=== PATIENT | female | born 1985 | race Caucasian/White ===

== ENCOUNTER 2023-04-30 09:48 | Outpatient (OUT) | payer OTHER, SELFPAY ==
[2023-04-30 10:24] VITALS: BP 130/87; PULSE 93
== END 2023-04-30 11:04 | disposition home or self-care (01) ==
LOC: FBCO 09:51 → FBC 09:55
PROVIDERS: Visit Provider Midwife
DX: O09.529 Supervision of elderly multigravida, unspecified trimester (principal); Z3A.00 Weeks of gestation of pregnancy not specified
CPT/HCPCS: 59025

== ENCOUNTER 2023-05-07 10:45 | Outpatient (OUT) | payer OTHER, SELFPAY | END 2023-05-07 11:08 | disposition home or self-care (01) | LOC: FBCO 10:46 → FBC 10:48 → FBCO 10:55 → FBC 10:56 | PROVIDERS: Visit Provider Midwife | DX: O09.529 Supervision of elderly multigravida, unspecified trimester (principal) | CPT/HCPCS: 59025 ==

== ENCOUNTER 2023-05-29 05:38 | Inpatient (IN) | payer OTHER, SELFPAY ==
[2023-05-29] VITALS (16 sets, daily range): BP systolic 133–153; BP diastolic 75–86; PULSE 71–103; RESP 16–18; TEMP 36.5–36.8; O2SAT 94–99
[2023-05-29] MEDS: LACTATED RINGER'S SOLUTION 1,000 ML 1000 ML IV ×2 (06:15→16:43)
[2023-05-29 07:00] LABS: Bilirubin Urine NEGATIVE (NEGATIVE); Blood Urine NEGATIVE (NEGATIVE); Clarity Urine CLEAR (CLEAR); Color Urine YELLOW (YELLOW); Glucose Urine UA NEGATIVE (NEGATIVE); Ketones Urine NEGATIVE (NEGATIVE); Leukocyte Esterase Urine NEGATIVE (NEGATIVE); Nitrite Urine NEGATIVE (NEGATIVE); Protein Urine TRACE mg/dL (NEG/TRACE); Specific Gravity Urine 1.025 (1.005-1.025); Urobilinogen Urine 0.2 EU/dL (0.2-1.0); pH Urine 6.5 (5.0-9.0)
[2023-05-29 07:02] LABS: Basophils Percent Auto 0.3 % (0.2-2.0); Eosinophils Absolute Auto 0.2 10^3/uL (0.0-0.7); Eosinophils Percent Auto 1.6 % (0.9-7.0); Hematocrit 34.7 % (36.0-48.0); Hemoglobin 11.7 g/dL (12.0-16.0); Immature Granulocytes Abs Auto 0.07 10^3/uL (0.00-0.03); Immature Granulocytes Pct Auto 0.7 % (0.0-0.5); Lymphocytes Absolute Auto 1.6 10^3/uL (1.2-3.8); Lymphocytes Percent Auto 16.7 % (20.5-60.0); Mean Corpuscular HGB Conc 33.7 g/dL (29.9-35.2); Mean Corpuscular Hemoglobin 29.6 pg (26.7-34.0); Mean Corpuscular Volume 87.8 fL (81.0-99.0); Monocytes Absolute Auto 0.7 10^3/uL (0.3-0.8); Monocytes Percent Auto 7.2 % (1.7-12.0); Neutrophils Absolute Auto 7.2 10^3/uL (1.4-6.5); Neutrophils Percent Auto 73.5 % (43.0-75.0); Platelet Count 161 10^3/uL (150-450); Red Blood Count 3.95 10^6/uL (4.20-5.40); Red Cell Distribution Width 13.6 % (11.0-15.0); White Blood Count 9.8 10^3/uL (4.0-11.0)
[2023-05-29 07:06] LABS: Bacteria Urine TRACE #/HPF (NONE SEEN); RBC Urine NONE SEEN #/HPF (0-2); WBC Urine NONE SEEN #/HPF (NONE SEEN)
--- NOTE | 2023-05-29 07:06 | P.OBHP_ITS ---
OB - H&P: HPI History of Present Illness Chief complaint: : 3 Para: 2 Gestational age based on last menstrual period: 39 w History of Present Dating criteria: LMP confirmed by 1st trimester US care: none Ultrasounds: normal 1st trimester US and normal mid trimester US complications: other complications comment: no complications, patient is AMA, history of depression, history of anxiety Medical complications OB: none Labs Blood type: A (+) positive Rubella: immune RPR/VDLR: nonreactive GBS status: negative HBsAG: negative Review of Systems ROS Status of ROS 10 or more systems reviewed and unremarkable except as noted in history and below [facility] Medical History Surgical History Meds Home Medications and Allergies Home Medications Medication Instructions Recorded Confirmed Type aspirin 81 mg tablet,delayed 81 mg PO DAILY 04/30/23 05/29/23 History release (Adult Low Dose Aspirin) famotidine 20 mg tablet (Acid 20 mg PO DAILY 04/30/23 05/29/23 History Ux Manager (famotidine)) prenat.vits,larisa,jpp-kynu-zourc 1 tab PO DAILY 04/30/23 05/29/23 History ondansetron 8 mg disintegrating 8 mg PO Q8H PRN nausea and vomiting 05/29/23 05/29/23 History tablet Allergies Allergy/AdvReac Type Severity Reaction Status Date / Time promethazine [From Phenergan] Allergy Intermediate Swelling Verified 05/29/23 06:05 of Lip/Tongue/Throat Exam Constitutional Documenting provider has reviewed patient's vital signs: yes Common normals: no apparent distress General appearance: cooperative and comfortable Orientation/consciousness: Yes awake HENMT Common normals: normocephalic Face and sinus: normal facial exam Chest Common normals: inspection of chest normal Respiratory Common normals: normal respiratory effort Effort & inspection: able to speak in complete sentences Auscultation: clear to auscultation bilaterally Cardio Common normals: no JVD, regular rate and regular rhythm Rate: regular rate Rhythm: regular rhythm GI Common normals: Normal to inspection, nondistended, normoactive bowel sounds present Inspection: normal to inspection Auscultation: normoactive bowel sounds Palpation: soft and firm Common normals: no CVA tenderness OB/external & speculum: deferred Back & Pelvis Common normals: no CVA tenderness Extremity Common normals: normal to inspection Neuro Common normals: oriented x3 Sensorium/orientation: awake, alert, oriented to person, oriented to place and oriented to time Speech: speech normal Psych Common normals: mental status grossly normal Results Labs Labs: Short CBC 05/29/23 Range/Units 06:15 WBC 9.8 (4.0-11.0) 10^3/uL Hgb 11.7 L (12.0-16.0) g/dL Hct 34.7 L (36.0-48.0) % Plt Count 161 (150-450) 10^3/uL Urine 05/29/23 Range/Units 06:15 Urine Color Yellow (YELLOW) Urine Clarity Clear (CLEAR) Urine pH 6.5 (5.0-9.0) Ur Specific [place] 1.025 (1.005-1.025) Urine Protein Trace (NEG/TRACE) mg/dL Urine Glucose (UA) Negative (NEGATIVE) mg/dL
[2023-05-29 07:07] LABS: Calcium Oxalate Crystals Urine FEW; Cast Seen? NONE SEEN #/LPF (NONE SEEN); Crystals Seen? Seen #/HPF (None Seen); Mucus Urine TRACE (NONE SEEN); Squamous Epithelial Cell Urine FEW #/LPF (NONE/RARE); Urine Culture Indicated NO
[2023-05-29 07:10] LABS: Amphetamine Screen Urine NEGATIVE (NEGATIVE); Barbiturates Screen Urine NEGATIVE (NEGATIVE); Benzodiazepines Screen Urine NEGATIVE (NEGATIVE); Buprenorphine Screen Urine NEGATIVE (NEGATIVE); Cannabinoid Screen Urine NEGATIVE (NEGATIVE); Cocaine Screen Urine NEGATIVE (NEGATIVE); Methadone Screen Urine NEGATIVE (NEGATIVE); Methamphetamines Screen Urine NEGATIVE (NEGATIVE); Opiate Screen Urine NEGATIVE (NEGATIVE); Oxycodone Screen Urine NEGATIVE (NEGATIVE); Phencyclidine Screen Urine NEGATIVE (NEGATIVE); Tricyclic Antidepressant Urine NEGATIVE (NEGATIVE)
[2023-05-29] MEDS: FAMOTIDINE/PF 20 MG/2 ML VIAL IV (07:26)
[2023-05-29] MEDS: CITRIC ACID/SODIUM CITRATE 30 ML SOLUTION PO (07:26)
[2023-05-29] MEDS: CEFAZOLIN SODIUM/DEXTROSE 2 GM/50 ML PIGGYBACK IV (07:31)
--- NOTE | 2023-05-29 08:45 | P.ON_ITS ---
Brief Operative Note Date of procedure: 05/29/23 Pre-op diagnosis: iup at 39wks, previous c/s, desires sterilization Post-op diagnosis: same Procedure: Patient was taken back to the Operating Room where she was given a spinal anesthesia with Duramorph without difficulty. She was prepped and draped in the normal sterile fashion. A Pfannenstiel skin incision was then made 2?cm above the symphysis pubis and carried down to underlying rectus fascia using a Bovie. The fascia was incised in the midline and extended laterally using George scissors. Two Emy clamps were placed on the superior aspect of the fascia and dissected off the underlying rectus muscles. The same was performed on the inferior aspect as well. The muscles were then in the midline. Peritoneum was identified and entered bluntly. The peritoneum was then extended superiorly and inferiorly with good visualization of the bladder. The bladder blade was inserted. Vesicouterine peritoneum was identified, tented up, and entered with Metzenbaum scissors. A bladder flap was then created digitally. The bladder blade was reinserted. A low transverse incision was made on the patient's uterus and extended laterally digitally. The was then delivered atraumatically after the bladder blade was removed in the cephalic position. The cord was clamped and cut. Cord blood was obtained. The was handed off to awaiting team. The patient's placenta was spontaneously delivered. The uterus was then exteriorized. The uterus was cleared of all clots and debris. The bladder blade was reinserted. The patient's uterine incision was closed using #0 Vicryl in a running lock fashion. Excellent hemostasis was assured.? The rt tube was identified and grasped with babock, the ligasure was used to transect and ligate the tube in its entirity, this was done on the contralateral side as well. The uterus was then returned to the patient's abdomen. The patient's abdomen was copiously irrigated using warm saline. Peritoneal gutters were cleared of all clots and debris. Again excellent hemostasis was assured. The patient's fascia was closed using #0 Vicryl in a running fashion. The patient's skin was closed using 4-0 Vicryl subcuticularly. The patient tolerated the procedure well. Sponge, lap, and needle counts were correct x2. The patient was taken to the Recovery Room in stable condition. Anesthesia: spinal Surgeon: Margarito Case Magazine Designer: EL HERNANDEZ Estimated blood loss (mL): 600 Pathology: other Condition: stable Disposition: floor
--- NOTE | 2023-05-29 08:45 | PM.OBPRCCS ---
Procedure Press Tender: EL HERNANDEZ Estimated blood loss (mL): 600 Disposition: floor Anesthesia type: Spinal
--- NOTE | 2023-05-29 09:17 | PM.OBPRCCS ---
Procedure Pre-op/Post-op diagnoses: patient presents to unit for scheduled repeat section with bilateral salpingectomy with Dr Case and myself first assisting Procedure: Repeat low transverse section with bilateral salpingectomy E Learning Specialist: EL HERNANDEZ Disposition: floor Anesthesia type: Spinal Complications: none Narrative: I first assisted dr Case as directed. I independently closed the skin incision with 3-0 vicryl on a Gary needle without difficulty. Hemostasis noted at end of procedure. Patient tolerated procedure well.
[2023-05-29] MEDS: KETOROLAC TROMETHAMINE 30 MG/ML VIAL IVP (10:14)
[2023-05-29] MEDS: NALBUPHINE HCL 10 MG/ML AMPULE 5 MG IV (10:14)
[2023-05-29] MEDS: ONDANSETRON PF 4 MG/2 ML VIAL IV ×2 (14:57→20:21)
[2023-05-29] MEDS: CEFAZOLIN SODIUM/DEXTROSE,ISO 2 GM/50 ML PIGGYBACK IV (15:04)
--- NOTE | 2023-05-29 19:11 | W.PC.ACHO ---
Registration Status: ADM IN Primary Language: Italian Preferred Language: Active Medications Generic Name Dose Route Start Last Admin Trade Name Efrainq PRN Reason Stop Dose Admin Famotidine 20 mg 05/29/23 08:00 05/29/23 07:26 Famotidine/Pf 20 Mg/2 Ml Vial IV 05/29/23 08:01 20 mg ONCE ONE Administration Diet Category Date Time Status NPO Diet Diet 05/29/23 05:44 Active Consults Category Date Time Status Consult to Anesthesiology Routine Cons 05/29/23 Ordered IV Insertion/Site Date of IV Line Insertion [18g 05/29/23 right Hand] IV Insertion Time [18g right 06:15 Hand] Neurology [place] coma scale total score 15 Respiratory Lung sounds [Throughout] clear Pulse Oximetry 98 Oxygen Delivery Method Room Air Catheter Urinary Catheter Date of 05/29/23 Insertion [Urethral] Urinary Catheter Time of 06:35 Insertion [Urethral]
--- NOTE | 2023-05-29 19:12 | W.PC.ACHO ---
Registration Status: ADM IN Primary Language: Yi Preferred Language: Active Medications Generic Name Dose Route Start Last Admin Trade Name Freq PRN Reason Stop Dose Admin Al Hydroxide/Mg Hydroxide 2,400 mg 05/29/23 08:42 Magnesium Hydroxide 2,400 Mg/10 Ml Oral.Susp PO Q6H PRN Dyspepsia Diphenhydramine HCl 25 mg 05/29/23 08:42 Diphenhydramine Hcl 50 Mg/Ml (1ml) Vial IV 05/30/23 08:43 Q6H PRN Itching Docusate Sodium 100 mg 05/30/23 09:00 Docusate Sodium 100 Mg Capsule PO BID MARSHALL Enoxaparin Sodium 40 mg 05/29/23 20:00 Enoxaparin Sodium 40 Mg/0.4 Ml Syringe SUBQ Q24H MARSHALL Sodium Chloride 1,000 mls @ 125 mls/hr 05/29/23 08:45 Sodium Chloride 0.9% 1,000 Ml IV .Q8H MARSHALL Ibuprofen 800 mg 05/29/23 08:42 Ibuprofen 400 Mg Tablet PO Q8H PRN Pain 1-3 Ketorolac Tromethamine 30 mg 05/29/23 08:42 05/29/23 10:14 Ketorolac Tromethamine 30 Mg/Ml Vial IVP 05/31/23 08:43 30 mg Q6H PRN Administration Pain 1-5 Ondansetron HCl 4 mg 05/29/23 08:42 05/29/23 14:57 Ondansetron Pf 4 Mg/2 Ml Vial IV 4 mg Q6H PRN Administration Nausea And Vomiting Oxycodone/Acetaminophen 1 each 05/29/23 08:42 Oxycodone Hcl/Acetaminophen 5-325 Mg Tablet PO Q4H PRN Pain 4-6 Oxycodone/Acetaminophen 2 each 05/29/23 08:42 05/29/23 17:25 Oxycodone Hcl/Acetaminophen 5-325 Mg Tablet PO 2 each Q4H PRN Administration Pain 7-10 Senna 17.2 mg 05/29/23 20:00 Sennosides 8.6 Mg Tablet PO QHS PRN Constipation Simethicone 80 mg 05/29/23 08:42 Simethicone 80 Mg Tab.Chew PO QID PRN Abdominal Distention Diet Category Date Time Status Regular Consistency Diet Diet 05/29/23 Dinner Active Consults Category Date Time Status Consult to Anesthesiology Routine Cons 05/29/23 Ordered IV Insertion/Site Date of IV Line Insertion [18g 05/29/23 right Hand] IV Insertion Time [18g right 06:15 Hand] Neurology [place] coma scale total score 15 [place] coma scale total score 15 Respiratory Lung sounds [Throughout] clear Lung sounds [Throughout] clear Lung sounds [Throughout] clear Lung sounds [Throughout] clear Lung sounds [Throughout] clear Pulse Oximetry 97 Pulse Oximetry 97 Pulse Oximetry 98 Pulse Oximetry 98 Pulse Oximetry 94 Pulse Oximetry 98 Oxygen Delivery Method Room Air Oxygen Delivery Method Room Air Oxygen Delivery Method Room Air Oxygen Delivery Method Room Air Oxygen Delivery Method Room Air Oxygen Delivery Method Room Air Oxygen Delivery Method Room Air Oxygen Delivery Method Room Air Oxygen Delivery Method Room Air Oxygen Delivery Method Room Air Oxygen Delivery Method Room Air Catheter Urinary Catheter Date of 05/29/23 Insertion [Urethral] Urinary Catheter Time of 06:35 Insertion [Urethral]
[2023-05-29] MEDS: ENOXAPARIN SODIUM 40 MG/0.4 ML SYRINGE SUBQ (19:49)
--- NOTE | 2023-05-29 20:55 | PC.NURSE ---
No pain reported at this time.
[2023-05-30] MEDS: KETOROLAC TROMETHAMINE 30 MG/ML VIAL IVP ×4 (01:59→20:12)
[2023-05-30 04:45] VITALS: BP 128/82; PULSE 89; RESP 16; TEMP 36.7
--- NOTE | 2023-05-30 07:14 | W.PC.ACHO ---
Registration Status: ADM IN Primary Language: Mongolian Preferred Language: Report given at this time to Roselia WONG. Active Medications Generic Name Dose Route Start Last Admin Trade Name Freq PRN Reason Stop Dose Admin Al Hydroxide/Mg Hydroxide 2,400 mg 05/29/23 08:42 Magnesium Hydroxide 2,400 Mg/10 Ml Oral.Susp PO Q6H PRN Dyspepsia Diphenhydramine HCl 25 mg 05/29/23 08:42 Diphenhydramine Hcl 50 Mg/Ml (1ml) Vial IV 05/30/23 08:43 Q6H PRN Itching Docusate Sodium 100 mg 05/30/23 09:00 Docusate Sodium 100 Mg Capsule PO BID MARSHALL Enoxaparin Sodium 40 mg 05/29/23 20:00 05/29/23 19:49 Enoxaparin Sodium 40 Mg/0.4 Ml Syringe SUBQ 40 mg Q24H MARSHALL Administration Sodium Chloride 1,000 mls @ 125 mls/hr 05/29/23 08:45 Sodium Chloride 0.9% 1,000 Ml IV .Q8H MARSHALL Ibuprofen 800 mg 05/29/23 08:42 Ibuprofen 400 Mg Tablet PO Q8H PRN Pain 1-3 Ketorolac Tromethamine 30 mg 05/29/23 08:42 05/30/23 01:59 Ketorolac Tromethamine 30 Mg/Ml Vial IVP 05/31/23 08:43 30 mg Q6H PRN Administration Pain 1-5 Ondansetron HCl 4 mg 05/29/23 08:42 05/29/23 20:21 Ondansetron Pf 4 Mg/2 Ml Vial IV 4 mg Q6H PRN Administration Nausea And Vomiting Oxycodone/Acetaminophen 1 each 05/29/23 08:42 05/30/23 04:47 Oxycodone Hcl/Acetaminophen 5-325 Mg Tablet PO 1 each Q4H PRN Administration Pain 4-6 Oxycodone/Acetaminophen 2 each 05/29/23 08:42 05/29/23 17:25 Oxycodone Hcl/Acetaminophen 5-325 Mg Tablet PO 2 each Q4H PRN Administration Pain 7-10 Senna 17.2 mg 05/29/23 20:00 Sennosides 8.6 Mg Tablet PO QHS PRN Constipation Simethicone 80 mg 05/29/23 08:42 Simethicone 80 Mg Tab.Chew PO QID PRN Abdominal Distention Diet Category Date Time Status Regular Consistency Diet Diet 05/29/23 Dinner Active Neurology [place] coma scale total score 15 Respiratory Lung sounds [Throughout] clear Lung sounds [Throughout] clear Lung sounds [Throughout] clear Lung sounds [Throughout] clear Lung sounds [Throughout] clear Lung sounds [Throughout] clear Lung sounds [Throughout] clear Pulse Oximetry 99 Pulse Oximetry 97 Pulse Oximetry 97 Pulse Oximetry 98 Pulse Oximetry 98 Pulse Oximetry 94 Oxygen Delivery Method Room Air Oxygen Delivery Method Room Air Oxygen Delivery Method Room Air Oxygen Delivery Method Room Air Oxygen Delivery Method Room Air Oxygen Delivery Method Room Air Oxygen Delivery Method Room Air Oxygen Delivery Method Room Air Oxygen Delivery Method Room Air Oxygen Delivery Method Room Air Oxygen Delivery Method Room Air Oxygen Delivery Method Room Air Catheter Date Urinary Catheter Removed 05/30/23 [Urethral] Time Urinary Catheter 04:45 Discontinued [Urethral]
--- NOTE | 2023-05-30 07:38 | PM.OBPN ---
OB - PN: Subj Subjective Patient comments: no complaints [place] status: doing well [place] feeding status: breast and bottle feeding Narrative: patient states she got no sleep as the baby was fussy throughout the night. She decided to give her some formula and see if it would help her sleep better. I did encourage her to let the nurses keep the baby in the nursery for her if she would like so they can get some sleep. PVU Exam Constitutional Vital Signs - 24 hr 05/29/23 16:26 05/29/23 08:57 05/29/23 09:12 Temperature 98.3 F 97.9 F Pulse Rate 80 Pulse Rate [Monitor] Respiratory Rate 16 16 Blood Pressure 135/82 H Blood Pressure [Left Arm] Pulse Oximetry Oxygen Delivery Method Room Air Room Air 05/29/23 09:27 05/29/23 08:57 05/29/23 09:07 Temperature 97.9 F Pulse Rate 98 H 91 H Pulse Rate [Monitor] Respiratory Rate 16 16 16 Blood Pressure Blood Pressure [Left Arm] 136/75 H 149/83 H Pulse Oximetry 94 L 98 Oxygen Delivery Method Room Air Room Air Room Air 05/29/23 09:12 05/29/23 09:22 05/29/23 09:27 Temperature 97.8 F Pulse Rate 82 82 78 Pulse Rate [Monitor] Respiratory Rate 16 16 18 Blood Pressure Blood Pressure [Left Arm] 150/82 H 153/82 H 145/80 H Pulse Oximetry 98 97 97 Oxygen Delivery Method Room Air Room Air Room Air 05/29/23 10:30 05/29/23 10:00 05/29/23 10:15 Temperature Pulse Rate 83 82 Pulse Rate [Monitor] 74 Respiratory Rate 16 16 16 Blood Pressure Blood Pressure [Left Arm] 133/84 H 143/81 H Pulse Oximetry Oxygen Delivery Method Room Air 05/29/23 10:30 05/29/23 10:45 05/29/23 11:00 Temperature Pulse Rate 74 71 74 Pulse Rate [Monitor] Respiratory Rate 18 16 16 Blood Pressure Blood Pressure [Left Arm] 142/85 H 133/86 H 138/82 H Pulse Oximetry Oxygen Delivery Method 05/29/23 11:15 05/29/23 16:30 05/29/23 19:45 Temperature 97.7 F 97.9 F Pulse Rate 72 80 89 Pulse Rate [Monitor] Respiratory Rate 16 16 16 Blood Pressure Blood Pressure [Left Arm] 145/82 H 135/82 H 137/85 H Pulse Oximetry 99 Oxygen Delivery Method Room Air Room Air 05/29/23 23:30 05/29/23 23:30 05/30/23 04:45 Temperature 97.7 F Pulse Rate 103 H Pulse Rate [Monitor] Respiratory Rate 16 Blood Pressure Blood Pressure [Left Arm] 140/83 H Pulse Oximetry Oxygen Delivery Method Room Air 05/30/23 04:45 Temperature 98.0 F Pulse Rate 89 Pulse Rate [Monitor] Respiratory Rate 16 Blood Pressure Blood Pressure [Left Arm] 128/82 H Pulse Oximetry Oxygen Delivery Method Documenting provider has reviewed patient's vital signs: yes Common normals: no apparent distress General appearance: cooperative Orientation/consciousness: Yes awake, Yes oriented to person, Yes oriented to place and Yes oriented to time HENMT Common normals: normocephalic Eye Common normals: PERRL Pupil: PERRL Neck & C-Spine Common normals: full ROM Chest Common normals: inspection of chest normal Respiratory Common normals: normal respiratory effort Auscultation: clear to auscultation bilaterally Cardio Common normals: no JVD, regular rate and regular rhythm Rate: regular rate Rhythm: regular rhythm GI Common normals: Normal to inspection, nondistended, normoactive bowel sounds present Auscultation: normoactive bowel sounds Palpation: soft (FF U/-1) Rectal Exam - Female: deferred Common normals: no CVA tenderness Back & Pelvis Common normals: no CVA tenderness Thoracic spine/upper back: normal to inspection Extremity Common normals: normal to inspection Neuro Common normals: oriented x3 Sensorium/orientation: awake, alert, oriented to person, oriented to place and oriented to time Psych Common normals: mental status grossly normal, thought process normal, cooperative, affect normal and speech normal Results Labs Labs: Short CBC 05/29/23 Range/Units 05:50 WBC 10.5 (4.0-11.0) 10^3/uL Hgb 9.9 L (12.0-16.0) g/dL Hct 29.5 L (36.0-48.0) % Plt Count 131 L (150-450) 10^3/uL OB - PN: A/P Assessment and Plan (1) Delivery by section: (2) (): (3) Status post bilateral salpingectomy: Plan continue routine post op, post orders encourage ambulation assist with as needed pain management Plan - day: 1 Plan: routine postop care Time Spent with Patient Time: Total time spent is greater than 50% in coordination of care (as documented) at patient's floor/unit and/or counseling patient: Total time spent with greater than 50% in coordination of care (as documented) at patient's floor/unit and/or counseling patient: less than 15 minutes
[2023-05-30 08:05] VITALS: BP 128/86; PULSE 93; RESP 18; TEMP 36.5; O2SAT 99
--- NOTE | 2023-05-30 08:27 | PC.NURSE ---
ambulates easily to bathroom, sits for several minutes but unable to void. reassurance given, patient ambulates back to bed. Infant to nursery for testing, mom desires to take a nap at this time. no further needs.
[2023-05-30] MEDS: FERROUS SULFATE 325 MG TABLET PO ×2 (10:17→20:12)
[2023-05-30] MEDS: DOCUSATE SODIUM 100 MG CAPSULE PO ×2 (10:17→20:12)
[2023-05-30 16:56] VITALS: BP 139/84; PULSE 93; RESP 16; TEMP 36.5
--- NOTE | 2023-05-30 17:04 | PC.NURSE ---
patient reports large void, no difficulty urinating
--- NOTE | 2023-05-30 19:17 | W.PC.ACHO ---
Registration Status: ADM IN Primary Language: Azeri Preferred Language: Report given to Nely WONG Active Medications Generic Name Dose Route Start Last Admin Trade Name Freq PRN Reason Stop Dose Admin Al Hydroxide/Mg Hydroxide 2,400 mg 05/29/23 08:42 Magnesium Hydroxide 2,400 Mg/10 Ml Oral.Susp PO Q6H PRN Dyspepsia Docusate Sodium 100 mg 05/30/23 09:00 05/30/23 10:17 Docusate Sodium 100 Mg Capsule PO 100 mg BID MARSHALL Administration Enoxaparin Sodium 40 mg 05/29/23 20:00 05/29/23 19:49 Enoxaparin Sodium 40 Mg/0.4 Ml Syringe SUBQ 40 mg Q24H MARSHALL Administration Ferrous Sulfate 325 mg 05/30/23 09:00 05/30/23 10:17 Ferrous Sulfate 325 Mg Tablet PO 325 mg BID MARSHALL Administration Sodium Chloride 1,000 mls @ 125 mls/hr 05/29/23 08:45 Sodium Chloride 0.9% 1,000 Ml IV .Q8H MARSHALL Ibuprofen 800 mg 05/29/23 08:42 Ibuprofen 400 Mg Tablet PO Q8H PRN Pain 1-3 Ketorolac Tromethamine 30 mg 05/29/23 08:42 05/30/23 13:59 Ketorolac Tromethamine 30 Mg/Ml Vial IVP 05/31/23 08:43 30 mg Q6H PRN Administration Pain 1-5 Ondansetron HCl 4 mg 05/29/23 08:42 05/29/23 20:21 Ondansetron Pf 4 Mg/2 Ml Vial IV 4 mg Q6H PRN Administration Nausea And Vomiting Oxycodone/Acetaminophen 1 each 05/29/23 08:42 05/30/23 15:37 Oxycodone Hcl/Acetaminophen 5-325 Mg Tablet PO 1 each Q4H PRN Administration Pain 4-6 Oxycodone/Acetaminophen 2 each 05/29/23 08:42 05/30/23 19:06 Oxycodone Hcl/Acetaminophen 5-325 Mg Tablet PO 2 each Q4H PRN Administration Pain 7-10 Senna 17.2 mg 05/29/23 20:00 Sennosides 8.6 Mg Tablet PO QHS PRN Constipation Simethicone 80 mg 05/29/23 08:42 Simethicone 80 Mg Tab.Chew PO QID PRN Abdominal Distention Respiratory Lung sounds [Throughout] clear Lung sounds [Throughout] clear Lung sounds [Throughout] clear Pulse Oximetry 99 Pulse Oximetry 99 Oxygen Delivery Method Room Air Oxygen Delivery Method Room Air Catheter Date Urinary Catheter Removed 05/30/23 [Urethral] Time Urinary Catheter 04:45 Discontinued [Urethral]
[2023-05-30] MEDS: ENOXAPARIN SODIUM 40 MG/0.4 ML SYRINGE SUBQ (20:12)
[2023-05-30 23:15] VITALS: RESP 16; TEMP 36.7
[2023-05-30 23:17] VITALS: BP 144/77; PULSE 86
[2023-05-31] MEDS: KETOROLAC TROMETHAMINE 30 MG/ML VIAL IVP (02:47)
--- NOTE | 2023-05-31 07:32 | W.PC.ACHO ---
Registration Status: ADM IN Primary Language: Maori Preferred Language: Active Medications Report given to Nita Fraser RN at 0705 Generic Name Dose Route Start Last Admin Trade Name Freq PRN Reason Stop Dose Admin Al Hydroxide/Mg Hydroxide 2,400 mg 05/29/23 08:42 Magnesium Hydroxide 2,400 Mg/10 Ml Oral.Susp PO Q6H PRN Dyspepsia Docusate Sodium 100 mg 05/30/23 09:00 05/30/23 20:12 Docusate Sodium 100 Mg Capsule PO 100 mg BID MARSHALL Administration Enoxaparin Sodium 40 mg 05/29/23 20:00 05/30/23 20:12 Enoxaparin Sodium 40 Mg/0.4 Ml Syringe SUBQ 40 mg Q24H MARSHALL Administration Ferrous Sulfate 325 mg 05/30/23 09:00 05/30/23 20:12 Ferrous Sulfate 325 Mg Tablet PO 325 mg BID MARSHALL Administration Sodium Chloride 1,000 mls @ 125 mls/hr 05/29/23 08:45 Sodium Chloride 0.9% 1,000 Ml IV .Q8H MARSHALL Ibuprofen 800 mg 05/29/23 08:42 Ibuprofen 400 Mg Tablet PO Q8H PRN Pain 1-3 Ketorolac Tromethamine 30 mg 05/29/23 08:42 05/31/23 02:47 Ketorolac Tromethamine 30 Mg/Ml Vial IVP 05/31/23 08:43 30 mg Q6H PRN Administration Pain 1-5 Ondansetron HCl 4 mg 05/29/23 08:42 05/29/23 20:21 Ondansetron Pf 4 Mg/2 Ml Vial IV 4 mg Q6H PRN Administration Nausea And Vomiting Oxycodone/Acetaminophen 1 each 05/29/23 08:42 05/30/23 23:17 Oxycodone Hcl/Acetaminophen 5-325 Mg Tablet PO 1 each Q4H PRN Administration Pain 4-6 Oxycodone/Acetaminophen 2 each 05/29/23 08:42 05/31/23 05:20 Oxycodone Hcl/Acetaminophen 5-325 Mg Tablet PO 2 each Q4H PRN Administration Pain 7-10 Senna 17.2 mg 05/29/23 20:00 Sennosides 8.6 Mg Tablet PO QHS PRN Constipation Simethicone 80 mg 05/29/23 08:42 Simethicone 80 Mg Tab.Chew PO QID PRN Abdominal Distention Neurology [place] coma scale total score 15 Respiratory Lung sounds [Throughout] clear Pulse Oximetry 99 Oxygen Delivery Method Room Air Oxygen Delivery Method Room Air Renal Bladder Pattern Continent
[2023-05-31] MEDS: FERROUS SULFATE 325 MG TABLET PO (08:39)
[2023-05-31] MEDS: IBUPROFEN 400 MG TABLET 800 MG PO ×2 (08:39→14:15)
[2023-05-31] MEDS: DOCUSATE SODIUM 100 MG CAPSULE PO (08:39)
[2023-05-31 08:41] VITALS: BP 147/79; PULSE 85; RESP 18; TEMP 36.6
[2023-05-31 10:03] VITALS: BP 137/85; PULSE 92
--- NOTE | 2023-05-31 11:21 | PM.OBPN ---
OB - PN: Subj Subjective Patient comments: no complaints (ONLY COMPLAINT IS HEADACHE. SHE DOES NOT HAVE A HISTORY OF MIGRAINE. HOWEVER, SLEEP DEPRIVATION CAN TRIGGER A BAD HEADACHE. IT IS SLIGHTLY IMPROVING WITH PERCOCET WHICH SHE RECEIVED LESS THAN AN HOUR AGO. SHE HAD WANTED TO GO HOME BEFORE HEADACHE CAME ON. ) infant status: doing well (BOTTLE AND ) [place] feeding status: breast and bottle feeding Exam Constitutional Vital Signs - 24 hr 05/30/23 16:56 05/30/23 23:17 05/31/23 08:41 Temperature Pulse Rate 93 H 86 85 Respiratory Rate Blood Pressure 139/84 H 144/77 H 147/79 H Oxygen Delivery Method 05/31/23 10:03 05/30/23 16:56 05/30/23 23:15 Temperature 97.7 F 98.0 F Pulse Rate 92 H Respiratory Rate 16 16 Blood Pressure 137/85 H Oxygen Delivery Method Room Air 05/30/23 23:15 05/31/23 08:41 Temperature 97.9 F Pulse Rate Respiratory Rate 16 18 Blood Pressure Oxygen Delivery Method Room Air Documenting provider has reviewed patient's vital signs: yes Common normals: no apparent distress (HAS HEADACHE NOT ASSOCIATED WITH AURA ), average body habitus, oriented x3, no limitations, healthy appearing, alert and well nourished General appearance: cooperative and well kempt Orientation/consciousness: Yes awake, Yes oriented to person, Yes oriented to place and Yes oriented to time HENMT Common normals: normocephalic and head/scalp atraumatic Head and scalp: normal to inspection Face and sinus: normal facial exam Eye Common normals: PERRL and EOMs intact bilaterally Visual acuity: acuity normal Pupil: PERRL Neck & C-Spine Common normals: full ROM Thyroid: thyroid normal Respiratory Common normals: normal respiratory effort Effort & inspection: able to speak in complete sentences Cardio Common normals: regular rate and regular rhythm GI Common normals: Normal to inspection, nondistended, normoactive bowel sounds present (INCISION DRY AND INTACT) Common normals: no CVA tenderness OB/external & speculum: deferred Extremity Common normals: normal to inspection, full ROM and no calf tenderness Neuro Common normals: oriented x3, CN's II-XII intact bilaterally, moves all extremities and no sensory deficits noted Speech: speech normal Motor exam: strength 5/5 throughout Psych Common normals: mental status grossly normal OB - PN: A/P Assessment and Plan (1) Delivery by section: Assessment and Plan: NORMAL POST OP COURSE WITH RESPECT TO SURGERY (2) (): Assessment and Plan: BREAST FEEDING AND BOTTLE FEEDING WITHOUT PROBLEM (3) Status post bilateral salpingectomy: Assessment and Plan: NO ATYPICAL POST SURGICAL PAIN Plan - day: 2 Plan: routine postop care and discharge home Comment: HAD WANTED TO GO HOME TODAY AND THEN DEVELOPED HEADACHE. STILL WANTS TO GO HOME IF HEADACHE RESOLVES WITH PERCOCET AND SLEEP AND CAFFEINE. SLEEP DEPRIVATION TYPICALLY TRIGGERS A HEADACHE HOWEVER DENIES HAVING MIGRANES. CLINCAL EXAM IS NOT SUGGESTIVE OF PREECLAMPSIA. SPINAL NEEDLE USED FOR SPINAL AND THESE DO NOT TYPICALLY CAUSE LEAKAGE OF CSF TUOHY NEEDLE CAN. VITAL SIGNS NORMAL. HEMOGLOBIN STABLE. TOLD PATIENT IS HEADACHE RESOLVES WILL ALLOW HER TO BE DISCHARGED. WILL PROVIDE WITH SCRIPTS FOR PAIN MEDICATION AND IBUPROFEN IF DISCHARGED. Plan - Vaginal Delivery day: 2 Plan: discharge home (IF HEADACHE RESOLVES PER PATIENT'S REQUEST. HAS GOOD SUPPORT AT HOME WITH [employer].) Time Spent with Patient Time: Total time spent is greater than 50% in coordination of care (as documented) at patient's floor/unit and/or counseling patient: Total time spent with greater than 50% in coordination of care (as documented) at patient's floor/unit and/or counseling patient: 25 - 35 minutes
[2023-06-03 14:15] LABS: Hematocrit 29.5 % (36.0-48.0); Hemoglobin 9.9 g/dL (12.0-16.0); Red Blood Count 3.31 10^6/uL (4.20-5.40); White Blood Count 10.5 10^3/uL (4.0-11.0)
[2023-06-03 14:16] LABS: Basophils Percent Auto 0.3 % (0.2-2.0); Eosinophils Absolute Auto 0.2 10^3/uL (0.0-0.7); Eosinophils Percent Auto 1.9 % (0.9-7.0); Immature Granulocytes Abs Auto 0.06 10^3/uL (0.00-0.03); Immature Granulocytes Pct Auto 0.6 % (0.0-0.5); Lymphocytes Absolute Auto 1.3 10^3/uL (1.2-3.8); Lymphocytes Percent Auto 12.2 % (20.5-60.0); Mean Corpuscular HGB Conc 33.6 g/dL (29.9-35.2); Mean Corpuscular Hemoglobin 29.9 pg (26.7-34.0); Mean Corpuscular Volume 89.1 fL (81.0-99.0); Monocytes Absolute Auto 0.7 10^3/uL (0.3-0.8); Neutrophils Absolute Auto 8.2 10^3/uL (1.4-6.5); Platelet Count 131 10^3/uL (150-450); Red Cell Distribution Width 13.7 % (11.0-15.0)
--- NOTE | 2023-06-21 | DS_ITS ---
DISCHARGE DATE: ??06/21/2023 PRIMARY DIAGNOSES: 1.? Intrauterine at 39 weeks. 2.? Previous . 3.? Desires permanent sterilization. PROCEDURE:? Repeat low transverse section with bilateral salpingectomy HOSPITAL COURSE:? As expected.? Please see chart for full details.? LABORATORY DATA:? Please see chart. COMPLICATIONS:? None. DISCHARGE CONDITION:? Stable. CONSULTATION: ?Anesthesia. DISCHARGE INSTRUCTIONS: 1.? Diet: ?Regular. 2.? Medications: a.? Percocet 5/325 one to two p.o. every 4-6 hours p.r.n. pain. b.? Motrin 800 one p.o. every 8 hours p.r.n. pain. 3.? Followup in one week. Restrictions:? Pelvic rest for 6 weeks.? No heavy lifting.? May drive when pain free and no longer on narcotics. JERALDD
== END 2023-05-31 18:50 | disposition home or self-care (01) | DRG 785 ==
PROVIDERS: Obstetrics & Gynecology; Admitting Provider Midwife; Visit Provider Obstetrics & Gynecology
DX: O34.211 Maternal care for low transverse scar from previous cesarean delivery (principal); O09.523 Supervision of elderly multigravida, third trimester; Z3A.39 39 weeks gestation of pregnancy; Z37.0 Single live birth; O99.893 Other specified diseases and conditions complicating puerperium; R51.9 Headache, unspecified; Z79.82 Long term (current) use of aspirin; Z79.899 Other long term (current) drug therapy; Z30.2 Encounter for sterilization; Z87.81 Personal history of (healed) traumatic fracture; Z86.19 Personal history of other infectious and parasitic diseases; Z86.69 Personal history of other diseases of the nervous system and sense organs; Z86.59 Personal history of other mental and behavioral disorders; Z87.39 Personal history of other diseases of the musculoskeletal system and connective tissue; Z98.890 Other specified postprocedural states; Z82.49 Family history of ischemic heart disease and other diseases of the circulatory system; Z80.8 Family history of malignant neoplasm of other organs or systems; Z88.8 Allergy status to other drugs, medicaments and biological substances
CPT/HCPCS: 36415; 80307; 81001; 85025; 86850; 86900; 86901; 88302; 94667; 96372; 96374; 96375; 96376; J2300

== ENCOUNTER 2023-06-01 00:30 | Observation (INO) | payer OTHER, SELFPAY ==
[2023-05-29] MEDS: LACTATED RINGER'S SOLUTION 1,000 ML 50 ML IV (08:06)
[2023-06-01] VITALS (14 sets, daily range): BP systolic 124–178; BP diastolic 72–106; PULSE 77–120; RESP 12–22; TEMP 36.6–37.2; O2SAT 98; BMI 28.0
--- NOTE | 2023-06-01 00:48 | CT_ITS ---
[facility] [place] [id number] Patient Name: ANDRE ACEVEDO MRN: [id number] date: 1985 Sex: F Assigned Patient Location: ER Current Patient Location: ER Accession/Order Number: [id number] Exam Date: 06/01/2023 01:35 Report Date: 06/01/2023 01:53 At the request of: TOSIN PINK Procedure: CT head/brain wo con EXAM: CT head/brain wo con HISTORY: Headache and nausea today. COMPARISON: None. TECHNIQUE: Nonenhanced CT imaging of the brain was performed with sagittal and coronal reconstructions. FINDINGS: No intracranial hemorrhage, edema, mass effect or midline shift is seen. The brain parenchyma, ventricles and extra-axial CSF spaces appear within normal limits. The calvarium and imaged facial bones are intact. The paranasal sinuses and mastoid air cells are clear. IMPRESSION: No acute intracranial process. Electronically authenticated by: LIBERTAD LINDSEY Date: 06/01/2023 01:53
--- NOTE | 2023-06-01 00:52 | ED.GENADUL1 ---
HPI - General Adult General Chief complaint: Headache Stated complaint: HEADACHE/POST OP Time Seen by Provider: 06/01/23 00:47 Source: patient Mode of arrival: walk-in Limitations: no limitations History of Present Illness HPI narrative: delivered 05/29 via C/S. delivery at 39 weeks. Discharged from the hospital tonight about 6 hours ago. On the way home developed headache. Took BP and it was elevated. BP continued to increase and she developed swelling of her feet. Not short of breath. Has nausea that improved some after zofran. Related Data Home Medications Medication Instructions Recorded Confirmed ondansetron 8 mg disintegrating 8 mg PO Q8H PRN nausea and vomiting 05/29/23 05/29/23 tablet Allergies Allergy/AdvReac Type Severity Reaction Status Date / Time promethazine [From Phenergan] Allergy Intermediate Swelling Verified 05/29/23 06:05 of Lip/Tongue/Throat Review of Systems ROS Status of ROS 10 or more systems reviewed and unremarkable except as noted in history and below PFSH PFSH Medical History Surgical History Family History (Updated 05/29/23 @ 07:17 by Natty Ross) Sister Family history of cancer Father Family history of hypertension Social History Do you think of yourself as: straight/heterosexual Gender Identity: female Exam Constitutional Vital Signs, click to edit/add: Last Vital Signs Temp 98.2 F 06/01/23 00:32 Pulse 86 06/01/23 01:52 Resp 12 06/01/23 01:01 BP 150/88 H 06/01/23 01:50 Pulse Ox 98 06/01/23 00:32 O2 Del Method Room Air 06/01/23 00:32 Common normals: no apparent distress, oriented x3 and healthy appearing Eye Common normals: PERRL, EOMs intact bilaterally and conjunctivae normal Respiratory Common normals: normal respiratory effort, no retractions, no use of accessory muscles and clear to auscultation bilaterally Cardio Common normals: no JVD, regular rate, regular rhythm, S1 normal heart sound and S2 normal heart sound GI Common normals: Normal to inspection, nondistended, normoactive bowel sounds present, soft to palpation, non-tender and no hepatosplenomegaly Extremity Common normals: full ROM Other: 1+ pitting of her feet Neuro Common normals: oriented x3, CN's II-XII intact bilaterally, moves all extremities, no focal motor deficits and no sensory deficits noted Psych Appearance: grossly normal Course Vital Signs Vital signs: Vital Signs Temperature 98.2 F 06/01/23 00:32 Pulse Rate 120 H 06/01/23 00:32 Respiratory Rate 22 06/01/23 00:32 Blood Pressure 178/106 H 06/01/23 00:32 Pulse Oximetry 98 06/01/23 00:32 Oxygen Delivery Method Room Air 06/01/23 00:32 Temperature 98.2 F 06/01/23 00:32 Pulse Rate 86 06/01/23 01:52 Respiratory Rate 12 06/01/23 01:01 Blood Pressure 150/88 H 06/01/23 01:50 Pulse Oximetry 98 06/01/23 00:32 Oxygen Delivery Method Room Air 06/01/23 00:32 Medical Decision Making MDM Narrative Medical decision making narrative: patient discharged from hospital about 6 hours ago. she is s/p CS 05/29 which was performed and no complications. Did have a ECHEVERRIA prior to discharge that was treated. On the way home her headache returned and continued to increase. She checked her BP at home and it also had increased along with more swelling or her feet. She returned and came to the ER and her initial BP was was 170s systolic. Treatment in the department included IV labetalol and IV magnesium . CT brain neg and CBC with mild anemia and LFTs WNL. Patient BP improved to 150s and her headache improved from 08/13 to 04/03. Discussed with distribution operations supervisor EQUIPMENT MAINTENANCE TECH Dr Rea and patient accepted for admission to her service Lab Data Labs: Lab Results 06/01/23 Range/Units 00:45 WBC 9.2 (4.0-11.0) 10^3/uL RBC 3.32 L (4.20-5.40) 10^6/uL Hgb 9.9 L (12.0-16.0) g/dL Hct 29.8 L (36.0-48.0) % MCV 89.8 (81.0-99.0) fL MCH 29.8 (26.7-34.0) pg MCHC 33.2 (29.9-35.2) g/dL RDW 13.7 (11.0-15.0) % Plt Count 146 L (150-450) 10^3/uL MPV 10.3 (9.5-13.5) fL Neut % (Auto) 75.7 H (43.0-75.0) % Lymph % (Auto) 13.6 L (20.5-60.0) % Allen % (Auto) 7.2 (1.7-12.0) % Eos % (Auto) 2.5 (0.9-7.0) % Baso % (Auto) 0.3 (0.2-2.0) % Neut # (Auto) 7.0 H (1.4-6.5) 10^3/uL Lymph # (Auto) 1.3 (1.2-3.8) 10^3/uL Allen # (Auto) 0.7 (0.3-0.8) 10^3/uL Eos # (Auto) 0.2 (0.0-0.7) 10^3/uL Baso # (Auto) 0.0 (0.0-0.1) 10^3/uL Abs Immat Gran (auto) 0.06 H (0.00-0.03) 10^3/uL Imm/Tot Granulo (auto) 0.7 H (0.0-0.5) % Sodium 139 (136-145) mmol/L Potassium 3.7 (3.5-5.1) mmol/L Chloride 108 H (98-107) mmol/L Carbon Dioxide 25.5 (21.0-32.0) mmol/L Anion Gap 9.2 BUN 8.0 (7.0-18.0) mg/dL Creatinine 0.62 (0.55-1.02) mg/dL Est GFR ( Amer) >60 (>=60) Est GFR (Non-Af Amer) >60 (>=60) BUN/Creatinine Ratio 12.9 Glucose 125 H (74-106) mg/dL Calcium 8.5 (8.5-10.1) mg/dL Total Bilirubin 0.2 (0.2-1.0) mg/dL Direct Bilirubin <0.1 (0.0-0.2) mg/dL AST 22 (15-37) U/L ALT 21 (14-59) U/L Alkaline Phosphatase 100 (46-116) U/L Total Protein 5.8 L (6.4-8.2) g/dL Albumin 2.5 L (3.4-5.0) g/dL Globulin 3.3 g/dL Albumin/Globulin Ratio 0.8 Discharge Plan Discharge Chief Complaint: Headache Clinical Impression: Hypertension affecting , delivered, current hospitalization Patient Disposition: Admitted as Observation Discharge Date/Time: 06/01/23 02:40
--- NOTE | 2023-06-01 00:54 | PC.NURSE ---
patient states she had c section at this hospital on Saturday without complication. was discharged from [facility] approx 6hours ago. states she had a headache in the morning but throughout the day it got better so she was agreeable with discharge. patient states when she got home her headache continued to get worse, she checked her blood pressure on both arms and noticed it was elevated. states she also noticed both of her feet were increasingly swollen in comparison to the morning. states she called [facility] and they instructed her to take 800mg ibuprofen and to lay down for one hour so she did that. took blood pressure one hour later and it was even higher, states on both arms it was 150s/90s. she was then told to come to the ER. states this is her 3rd c section, all live births without other complications. although she states with her first child she had preeclampsia but has not had any issues thus far with this . states she has had no change in bleeding since discharge. denies any changes in vision. YAO cool. patient also states she has been getting dizzy and during triage suddenly felt like she was going to pass out. states she took percocet 30mins prior to arrival and took zofran at 2030.
[2023-06-01 00:59] LABS: Basophils Percent Auto 0.3 % (0.2-2.0); Eosinophils Absolute Auto 0.2 10^3/uL (0.0-0.7); Eosinophils Percent Auto 2.5 % (0.9-7.0); Hematocrit 29.8 % (36.0-48.0); Hemoglobin 9.9 g/dL (12.0-16.0); Immature Granulocytes Abs Auto 0.06 10^3/uL (0.00-0.03); Immature Granulocytes Pct Auto 0.7 % (0.0-0.5); Lymphocytes Absolute Auto 1.3 10^3/uL (1.2-3.8); Lymphocytes Percent Auto 13.6 % (20.5-60.0); Mean Corpuscular HGB Conc 33.2 g/dL (29.9-35.2); Mean Corpuscular Hemoglobin 29.8 pg (26.7-34.0); Mean Corpuscular Volume 89.8 fL (81.0-99.0); Mean Platelet Volume 10.3 fL (9.5-13.5); Monocytes Absolute Auto 0.7 10^3/uL (0.3-0.8); Monocytes Percent Auto 7.2 % (1.7-12.0); Neutrophils Percent Auto 75.7 % (43.0-75.0); Platelet Count 146 10^3/uL (150-450); Red Blood Count 3.32 10^6/uL (4.20-5.40); Red Cell Distribution Width 13.7 % (11.0-15.0); White Blood Count 9.2 10^3/uL (4.0-11.0)
[2023-06-01 01:04] LABS: Anion Gap 9.2; BUN Creatinine Ratio 12.9; Calcium 8.5 mg/dL (8.5-10.1); Carbon Dioxide 25.5 mmol/L (21.0-32.0); Chloride 108 mmol/L (98-107); Estimated GFR (African America >60 (>=60); Estimated GFR (Non-African Ame >60 (>=60); Glucose 125 mg/dL (74-106); Potassium 3.7 mmol/L (3.5-5.1); Sodium 139 mmol/L (136-145)
[2023-06-01] MEDS: LABETALOL HCL 20 MG/4 ML SYRINGE ×2 (01:06→02:15)
[2023-06-01 01:19] LABS: Alanine Aminotransferase 21 U/L (14-59); Albumin Globulin Ratio 0.8; Albumin Level 2.5 g/dL (3.4-5.0); Alkaline Phosphatase 100 U/L (46-116); Aspartate Amino Transferase 22 U/L (15-37); Bilirubin Direct <0.1 mg/dL (0.0-0.2); Bilirubin Total 0.2 mg/dL (0.2-1.0); Globulin 3.3 g/dL; Total Protein 5.8 g/dL (6.4-8.2)
--- NOTE | 2023-06-01 01:35 | PC.NURSE ---
manual BP obtained prior to administration of ordered medications. manual BP 160/98, dr antunez notified.
--- NOTE | 2023-06-01 10:28 | P.OBHP_ITS ---
OB - H&P: HPI History of Present Illness Chief complaint: HEADACHE/POST OP : 3 Para: 3 Date of last menstrual period: JUST DELIVERED 05/30/23 History of Present care: good care Ultrasounds: normal mid trimester US complications: other complications comment: NONE Medical complications OB: other (PPD 2 DEVELOPED HEADACHE WITH INCREASED BLOOD PRESSURE WHICH RESOLVED WITH MEDICATION FOR HEADACHE.) Narrative: CLINICAL EXAM NOT SUGGESTIVE OF TOXEMIA POST . DID HAVE TOXEMIA WITH FIRST . HEADACHE RESOLVED WITH PAIN MEDICATION AND PATIENT WAS ABLE TO BE DISCHARGED HOME. SHE RETURNED TO ED AFTER MIDNIGHT FOR SEVERE HEADACHE AND ED PHYSICIAN NOTED ELEVATED BLOOD PRESSURE. CMP AND CBC UNREMARKABLE FOR TOXEMIA. CT SCAN NEGATIVE. WAS READMITTED FOR EVALUATION AND MANAGEMENT INDICATED FOR TOXEMIA VS HELLP VS PIH VS CHRONIC HYPERTENSION. IF URINE P:C RATION NORMAL AND HEADACHE DOES NOT RESOLVE....WILL CONSULT ANESTHESIA FOR EVALUATION OF SPINAL HEADACHE. Labs Narrative: DELIVERED Review of Systems ROS Status of ROS 10 or more systems reviewed and unremarkable except as noted in history and below PFSH PFSH Medical History Surgical History Family History (Updated 05/29/23 @ 07:17 by Natty Ross) Sister Family history of cancer Father Family history of hypertension Social History Do you think of yourself as: straight/heterosexual Gender Identity: female Meds Home Medications and Allergies Allergies Allergy/AdvReac Type Severity Reaction Status Date / Time promethazine [From Phenergan] Allergy Intermediate Swelling Verified 05/29/23 06:05 of Lip/Tongue/Throat Exam Constitutional Vital Signs, click to edit/add: Last Vital Signs Temp 98.2 F 06/01/23 00:32 Pulse 86 06/01/23 01:52 Resp 12 06/01/23 01:01 BP 150/88 H 06/01/23 01:50 Pulse Ox 98 06/01/23 00:32 O2 Del Method Room Air 06/01/23 00:32 Documenting provider has reviewed patient's vital signs: yes Common normals: no apparent distress, average body habitus, oriented x3 and alert General appearance: cooperative [facility] Common normals: normocephalic and head/scalp atraumatic Eye Common normals: PERRL Neck & C-Spine Common normals: full ROM Respiratory Common normals: normal respiratory effort Cardio Common normals: regular rate and regular rhythm GI Common normals: Normal to inspection, nondistended, normoactive bowel sounds present Common normals: no CVA tenderness Speculum exam - vagina: other (NORMAL LOCHIA, PREVENTING OBTAINING 24 HOUR URINE FOR TOTAL PROTEIN ) Speculum exam - cervix: other (DELIVERED) Bimanual exam- vagina & uterus: other Bimanual exam- adnexa, other: other (DELIVERED) Extremity Common normals: normal to inspection (NORMAL EDEMA C/W POST DAY 3) and full ROM Neuro Common normals: CN's II-XII intact bilaterally Psych Common normals: mental status grossly normal Insight: insight good Judgement: judgment good Results Labs Labs: Short CBC 06/01/23 Range/Units 00:45 WBC 9.2 (4.0-11.0) 10^3/uL Hgb 9.9 L (12.0-16.0) g/dL Hct 29.8 L (36.0-48.0) % Plt Count 146 L (150-450) 10^3/uL BMP 06/01/23 00:45 Sodium 139 Potassium 3.7 Chloride 108 H Carbon Dioxide 25.5 BUN 8.0 Creatinine 0.62 Glucose 125 H Calcium 8.5 Liver Function 06/01/23 Range/Units 00:45 Total Bilirubin 0.2 (0.2-1.0) mg/dL Direct Bilirubin <0.1 (0.0-0.2) mg/dL AST 22 (15-37) U/L ALT 21 (14-59) U/L Alkaline Phosphatase 100 (46-116) U/L Albumin 2.5 L (3.4-5.0) g/dL OB - A/P Assessment and Plan (1) Headache: Assessment and Plan: CT NEGATIVE OF BRAIN. IF HEADACHE NOT RESOLVED WITH PAIN MED AND TRIPTAN, WILL CONSULT ANESTHESIA TO EVALUATE FOR SPINAL HEADACHE (2) Hypertension: Assessment and Plan: CURRENTLY ON MAGNESIUM PENDING RESULT OF P:C RATIO. NO OTHER DATA SUPPORTIVE FOR TOXEMIA. IF P:C RATION NORMAL WILL STOP MAGNESIUM Plan CAN NOT DO 24 HOUR URINE COLLECTION FOR TP AND CREATININE BECAUSE OF LOCHIA CONTAMINATING URINE. WILL DO STRAIGHT CATH P:C RATION. IF NORMAL, STOP MAGNESIUM AND THERE IS NO OTHER DATA TO SUPPORT TOXEMIA. IF BLOOD PRESSURE REMAINS GREATER THAN 140/90 FOR TWO MEASUREMENTS TWO HOURS APART WILL START NIFEDIPINE 30 MG XR ONCE DAILY.
--- NOTE | 2023-06-01 11:43 | PC.NURSE ---
1055 Straight catheter urine obtained for testing for protein after vigorous cleansing of perineum, medicated for headache and neckache of a 5 with percocet, states is somewhat light sensitive and a little dizzy when ambulating
[2023-06-01 12:16] LABS: Creatinine Urine Random 26.33 mg/dL (20.00-300.00); Protein Creatinine Ratio Urine 0.23; Total Protein Urine Random <6.0 mg/dL (<=11.9)
[2023-06-01] MEDS: BISACODYL 5 MG TABLET PO ×2 (14:00→21:47)
[2023-06-01] MEDS: SUMATRIPTAN SUCCINATE 50 MG TABLET 100 MG PO (14:01)
--- NOTE | 2023-06-01 14:51 | PC.NURSE ---
1400 Magnesium sulfate discontinued as well as NS per orders, reviewed plan of care, medicated with immitrex and dulcolax. Assessed as noted, rates pain 4-5 to head and neck, cool washcloth to eyes
--- NOTE | 2023-06-01 15:35 | PC.NURSE ---
1530 Pt appears to be asleep with easy respiratory effort.
[2023-06-01 15:48] LABS: INR <0.93; Prothrombin Time 9.3 sec (9.0-11.6)
[2023-06-01 15:49] LABS: Partial Thromboplastin Time 26.5 sec (22.3-36.2); Uric Acid 6.4 mg/dL (2.6-6.0)
[2023-06-01] MEDS: IBUPROFEN 400 MG TABLET 800 MG PO (17:14)
--- NOTE | 2023-06-01 17:35 | PC.NURSE ---
1650 Calls RN to room, assisted to BR, states I just feel out of it, groggy like I slept too little or too much , gait steady, voids and returns to chair. C/o 7 pain level to incision and cramping, and increases with pumping breasts, c/o nipple pain with pumping, nipples appear engorged so given ointment to lubricate with pump, encouraged to try different pump, tearful and states neck ache is better, less stiff and head doesnt seem bad now compared to everything else . Medicated with motrin and percocet and reassurance given
--- NOTE | 2023-06-01 20:42 | PC.NURSE ---
Pt states headache went from 4 to 7 upon standing and after breast feeding. BP taken and WNL. RN lays pt flat to try and rule out spinal headache, pt states no improvement with laying flat. Pt states she wants to get up and walk then once pt is back to bed, RN will provide warm compress for pt's neck and administer pain medication when due.
[2023-06-01] MEDS: ZOLPIDEM TARTRATE 10 MG TABLET PO (21:47)
[2023-06-02 04:12] VITALS: BP 130/78; PULSE 96
[2023-06-02] MEDS: IBUPROFEN 400 MG TABLET 800 MG PO (04:13)
[2023-06-02 04:20] VITALS: RESP 16
--- NOTE | 2023-06-02 07:12 | W.PC.ACHO ---
Registration Status: ADM IN Primary Language: Preferred Language: Active Medications Generic Name Dose Route Start Last Admin Trade Name Wagner PRN Reason Stop Dose Admin Bisacodyl 5 mg 06/01/23 13:02 06/01/23 21:47 Bisacodyl 5 Mg Tablet PO 5 mg BID PRN Administration Constipation Lactated Ringer's 1,000 mls @ 50 mls/hr 05/29/23 09:00 05/29/23 08:06 Lactated Ringers IV 50 mls/hr .Q20H MARSHALL Administration Ibuprofen 800 mg 06/01/23 14:23 06/02/23 04:13 Ibuprofen 400 Mg Tablet PO 800 mg Q8H PRN Administration pain Ondansetron HCl 8 mg 06/01/23 10:52 Ondansetron 4 Mg Rapdis Tablet PO Q6H PRN nausea Oxycodone/Acetaminophen 2 each 06/01/23 10:52 06/02/23 04:13 Oxycodone Hcl/Acetaminophen 5-325 Mg Tablet PO 2 each Q4H PRN Administration Pain Scale 7-10 Prenat Multivit/[place]/Iron/Folic Ac 1 each 06/01/23 11:00 06/01/23 14:35 /Iron/Folic Acid 1 Each Tablet PO Not Given QD MARSHALL Zolpidem Tartrate 10 mg 06/01/23 18:01 06/01/23 21:47 Zolpidem Tartrate 10 Mg Tablet PO 10 mg BEDTIME PRN Administration Sleep Diet Category Date Time Status Regular Consistency Diet Diet 06/01/23 Breakfast Active IV Insertion/Site Date of IV Line Insertion [20g 06/01/23 left Forearm] IV Insertion Time [20g left 03:15 Forearm] Neurology [place] coma scale total score 15 [place] coma scale total score 15 Respiratory Lung sounds [Throughout] clear Lung sounds [Throughout] clear Lung sounds [Throughout] clear Lung sounds [Throughout] clear Oxygen Delivery Method Room Air Oxygen Delivery Method Room Air Cardiology Heart Sounds Regular Heart Sounds Regular Heart Sounds Strong,Regular Bowels Bowel Pattern Constipated,No Bowel Movement Bowel Pattern Constipated,No Bowel Movement Bowel Pattern Constipated Date of Last Bowel Movement 05/27/23 Date of Last Bowel Movement 05/27/23 Renal Bladder Pattern Continent Bladder Pattern Continent Bladder Pattern Continent Bladder Pattern Continent Catheter Urinary Catheter Date of 06/01/23 Insertion [Straight] Urinary Catheter Time of 11:40 Insertion [Straight]
[2023-06-02 08:10] VITALS: BP 136/73; PULSE 87
[2023-06-02 08:25] VITALS: RESP 16; TEMP 37.1
--- NOTE | 2023-06-02 10:19 | PM.OBDS ---
DS: Providers Provider Date of admission: 06/01/23 09:50 Primary care physician: DIANE HERNANDEZ Attending physician on discharge: Farzaneh Rea Discharging clinician: Farzaneh Rea Anticipated date of discharge: 06/02/23 DS: Diagnosis Discharge Diagnosis (1) Headache: Assessment and plan: mostly resolved with sleep, (not migrainer, head CT neg, not spinal headache, not related to blood pressure, does state gets headache when sleep deprived (2) Hypertension: Assessment and plan: resolved. however, will be taking blood pressure twice daily at home. will give recorded blood pressures to Elisa her addiction therapist. has been instructed that for two blood pressures six hours apart >/ 160/100 will start nifedipine 30 mg extended release one PO qd and has been given a script for nifedipine but knows not to take unless instructed to do so by care provider Plan s/p readmission after discharge for CS and BTL for headache and elevated blood pressure. toxemia ruled out, head CT neg, no history of migraine headaches, blood pressures now normal without medication, clinical exam nonfocal, finally has slept and feels better except would like to have bowel movement and will receive a dulcolax supp as requested, has follow up appointment with Elisa on Sat and Elisa will be given detailed sign out by [facility] OB - DS: Summary Hospital Course Hospital Course: complicated by headache and brief episodes of hypertension not related to PIH or toxemia or migraine headache or bleed as head CT negative Time spent discussing smoking cessation with patient: more than 10 minutes Peripartum Data - Procedures: Procedures Operation Date: 05/29/23 07:30 Actual Procedure Side Surgeon p Repeat with Bilateral Salpingectomy Bilateral Margarito Case DO Peripartum Data - Vaginal Delivery Procedures: Procedures Operation Date: 05/29/23 07:30 Actual Procedure Side Surgeon p Repeat with Bilateral Salpingectomy Bilateral Margarito Case DO Complications complications: other (headache and hypertension both resolved) Infant Delivery method: elective section Gender: female Discharge plan: home Status at Discharge Functional status at discharge: independent ambulation Overall status at discharge: patient is back to baseline Time Spent with Patient Time attestation: Total time spent providing and/or coordinating discharge services: Time spent: greater than 30 minutes Specific discharge activities: no sex six weeks, no driving 4 weeks, follow up with Elisa on Sat., take BP twice daily and report blood pressure >/ 160/105 to provider on 2 occasions 6 hours apart Exam Constitutional Vital Signs, click to edit/add: Last Vital Signs Temp 98.7 F 06/02/23 08:25 Pulse 87 06/02/23 08:10 Resp 16 06/02/23 08:25 BP 136/73 H 06/02/23 08:10 Pulse Ox 98 06/01/23 00:32 O2 Del Method Room Air 06/02/23 04:20 Common normals: no apparent distress, oriented x3, healthy appearing and well nourished General appearance: cooperative, comfortable, well kempt and well developed Orientation/consciousness: Yes awake, Yes oriented to person, Yes oriented to place and Yes oriented to time HENMT Common normals: normocephalic and head/scalp atraumatic Eye Common normals: PERRL Neck & C-Spine Common normals: full ROM Respiratory Common normals: normal respiratory effort Auscultation: clear to auscultation bilaterally Cardio Common normals: regular rate and regular rhythm GI Common normals: Normal to inspection, nondistended, normoactive bowel sounds present, soft to palpation and non-tender Common normals: no CVA tenderness OB/external & speculum: deferred Extremity Common normals: normal to inspection and full ROM Neuro Common normals: oriented x3 and CN's II-XII intact bilaterally Psych Common normals: mental status grossly normal, thought process normal, cooperative, affect normal, speech normal and activity/motor behavior normal DS: Data Data Completed and Pending Labs on day of discharge: Labs from last 24 hours 06/01/23 06/01/23 11:30 00:45 PT 9.3 INR <0.93 APTT 26.5 Uric Acid 6.4 H Ur Random Creatinine 26.33 U Random Total Protein <6.0 Protein/Creatinin Ratio 0.23 Discharge Plan Discharge Disposition: Home, Self-Care Activity: resume usual activities as tolerated Diet: advance to your usual diet Activity Restrictions/Additional Instructions: no sex for six weeks, no driving for 4 weeks, not to lift more than 10 pounds, wear sports bra if decides to stop pumping/breast feeding, may shower, no bathtub 4 weeks, a script will be provided for nifedipine 30 mg extended release one qd but do not take unless instructed to do so by physician for two recorded blood pressures greater than 160/100 reported to care provider, already has scripts at home for colace and percocet, will start zoloft 50 mg po qhs and if need be can be increased to 100 mg qhs after two weeks, incision check scheduled Saturday with Elisa the addiction therapist, a detailed sign out will be provided to Elisa about this patient's post CS course and readmission for headache associated with hypertension, Elisa will be told neurologist consult recommended for recurrent headache, (not associated with toxemia or hypertension, or brain pathology viewable on head CT) Forms: Portal Instructions Follow Up Appointments: appointment already made for Saturday with Elisa the addiction therapist, baby will see peds within one week Discharge location: home
[2023-06-02] MEDS: BISACODYL 10 MG RECTAL SUPPOSITORY PR (11:00)
[2023-06-02] MEDS: IBUPROFEN 400 MG TABLET PO (14:10)
== END 2023-06-02 16:35 | disposition home or self-care (01) ==
LOC: ER 00:35 → FBC 09:51
PROVIDERS: Obstetrics & Gynecology; Admitting Provider Obstetrics & Gynecology; Emergency Provider Internal Medicine; Visit Provider Obstetrics & Gynecology
PROC: (CPT 59514; principal; 2023-05-29 07:30)
DX: O90.89 Other complications of the puerperium, not elsewhere classified (principal); R51.9 Headache, unspecified; O16.5 Unspecified maternal hypertension, complicating the puerperium
CPT/HCPCS: 36415; 51701; 70450; 80048; 80076; 82570; 84156; 84550; 85025; 85610; 85730; 88302; 96374; 96376; 99285; G0378

== ENCOUNTER 2023-06-06 09:10 | Outpatient (RCR) | payer OTHER, SELFPAY ==
[2023-06-06 13:04] VITALS: BP 135/88; PULSE 89; RESP 20; TEMP 36.7; O2SAT 98
== END 2023-06-06 13:20 | disposition home or self-care (01) ==
LOC: FBCO 09:10
PROVIDERS: Visit Provider Obstetrics & Gynecology
DX: Z39.2 Encounter for routine postpartum follow-up (principal)

== ENCOUNTER 2023-06-11 13:49 | Outpatient (RCR) | payer OTHER, SELFPAY ==
--- NOTE | 2023-06-11 14:08 | PC.NURSE ---
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 Short choppy sucks noted with periods of deep chin pauses and swallowing is frequent
--- NOTE | 2023-06-11 14:16 | PC.NURSE ---
Teresa and Cliff arrive for support. States [place] had lip and tongue revision 06/07/2023 at pediatric dentist. Pt is mostly pumping and bottle feeding pumped milk during the day with latching on the breast at night. is working for her at this time. Also questions why baby is not getting better at latching with . Discussed need to learn skills needed for direct in order to do it well. discussed needed continuation of oral exercises after release, suck training exercises and including body work. Has chiropractor that is familiar with baby care. Reasons for importance of treating all the s/s of tightness reviewed and pt verbalized understanding. Demo of suck exercises given, pt able to return demo.
== END 2023-06-11 14:36 | disposition home or self-care (01) ==
LOC: FBCO 13:49
PROVIDERS: Visit Provider Obstetrics & Gynecology
DX: Z39.2 Encounter for routine postpartum follow-up (principal)
CPT/HCPCS: G0463

== ENCOUNTER 2025-07-13 12:08 | Outpatient (REF) | payer OTHER, SELFPAY | END 2025-07-13 12:09 | disposition home or self-care (01) | LOC: LAB 12:08 | PROVIDERS: Visit Provider Obstetrics & Gynecology | DX: N92.0 Excessive and frequent menstruation with regular cycle (principal) | CPT/HCPCS: 88305 ==

== ENCOUNTER 2025-08-04 13:20 | Outpatient (OUT) | payer OTHER, SELFPAY | END 2025-08-04 13:21 | disposition home or self-care (01) | LOC: PST 13:21 | PROVIDERS: Visit Provider Obstetrics & Gynecology | DX: Z01.818 Encounter for other preprocedural examination (principal); N92.0 Excessive and frequent menstruation with regular cycle; N93.9 Abnormal uterine and vaginal bleeding, unspecified; R10.2 Pelvic and perineal pain ==

== ENCOUNTER 2025-08-13 08:58 | Day surgery (SDC) | payer OTHER, SELFPAY ==
--- OUTSIDE RECORDS SUMMARY | 2025-08-03 16:05 | XMS_ITS | Encounter Summary ---
Author Organization [facility] Address [address] [place] [address] Care Team Providers Care It Security Architect Name Role Phone Unallocated, Noms Provider Primary Care Provi jaida Reason for Visit * Reason Comments Skin Check Encounter Details Date Type Department Care Team (Late st Contact Info) Description 08/03/2025 4:05 PM EDT Office Visit [facility] [address] [place] [address] Coral Villalobos APRN-CNP [address] [place] [address] Melanocytic nevi of trunk (Primary Dx); Lentigines; Seborrheic keratosis Social History Tobacco Use Types Packs/Day Years Used Date Smoking Tobacco: Never Smokeless Tobacco: Never Alcohol Use Standard Drinks/Week Comments Yes 0 (1 standard drink = 0.6 oz pure alcohol) 1-2 drinks less than monthly in the past year, Caffeine intake: 2-3cups per day coffee, diet coke [place] Depression Scale Answer Date Recorded [place] Depression Scale Total 5 07/10/2023 The thought of harming myself has occurred to me . Never 07/10/2023 Comments No Sex and Gender Information Value Date Recorded Sex Assigned at Not on file Legal Sex Female 7:35 PM EDT Gender Identity Not on file Sexual Orientation Not on file documented as of this encounter Progress Notes * LATRELL Fernandez - 08/03/2025 4:05 PM EDT Skin Check Location: Patient requests a full body skin examination Dermatologic history: no history of skin cancer, no history of atypical moles, family history of melanoma Last visit: 1 year ago Established patient All pertinent medical history, medications, and allergies were reviewed. General Exam: alert, oriented to person, place, and time, normal affect, well appearing Unaccompanied Scalp, Examined , exam limited by hair Right leg Examined Head, Face Examined Left leg Examined Neck Examined Right foot Examined Chest Examined Patient kept bra on Left foot Examined Back Examined Buttocks Examined Patient kept underwear on Abdomen Examined Digits,nails: Examined Right arm Examined Patient wearing nail luxembourgish, Denies dark streaks under finger nails, Denies darkstreaks on toenails Left arm Examined Lymphatics: Not examined Hands Examined Skin Exam 1. MELANOCYTIC NEVI OF TRUNK Generalized Evenly pigmented macules and papules Counseled regarding these benign growths. Rarely, a nevus can develop into malignant melanoma, so any changing nevi should be promptly re-evaluated. 2. LENTIGINES Generalized Scattered vergara macules in sun-exposed areas. The patient was informed that lentigines are benign pigmented lesions that occur on sun-exposed andsun-damaged skin. No treatment is necessary. Recommended regular use of broad spectrum sunscreen SPF 30 or higher 3. SEBORRHEIC KERATOSIS Generalized Stuck on verrucous, variably pigmented papules and plaques. Patient was counseled regarding these benign growths. Removal is normally not necessary, but they may be removed if they are symptomatic or for cosmetic reasons. Next Visit: 1 year documented in this encounter Plan of Treatment Upcoming Encounters Date Type Department Care Team (Late st Contact Info) Description 08/23/2025 1:30 PM EDT Office Visit [facility] [address] [place] [address] Marti Chavez NP [address] [place] [address] 09/21/2025 10:30 AM EDT Ancillary Procedure [facility] [address] [place] [phone] 09/21/2025 11:00 AM EDT Office Visit [facility] [address] [place] [phone] Tess Watson, CNM [address] [place], [place] [id number] 06/30/2026 10:50 AM EDT Office Visit [facility] [address] [place] [address] Coral Villalobos APRN-COMPONENT OVERHAUL OPERATOR [address] [place] [address] documented as of this encounter Visit Diagnoses Diagnosis Melanocytic nevi of trunk- Primary Lentigines Seborrheic keratosis documented in this encounter Care Teams It Security Architect Relationship Specialty Start Date End Date Unallocated, Noms MD [employer] [address] [place] [address] PCP - General 04/23/23 documented as of this encounter
[2025-08-04 14:04] VITALS: BP 137/87; PULSE 80; TEMP 36.5; O2SAT 100; BMI 26.4
--- OUTSIDE RECORDS SUMMARY | 2025-08-13 09:00 | XMS_ITS | Clinical Summary ---
Author Organization [facility] Address [address] [place], [place] [id number] Care Team Providers Care Office Coordinator Receptionist Name Role Phone Reymundo Underwood Morocho Primary Care Provider [phone] Allergies Active Allergy Reactions Criticality Noted Date Comments Promethazine Hcl Other: See Comments 10/21/2015 Tongue numbness Medications DULoxetine (CYMBALTA) 60 mg capsule Take 60 mg by mouth once daily. Active pregabalin (LYRICA) 50 mg capsule Take 50 mg by mouth once daily. Active tiZANidine HCl (ZANAFLEX) 4 mg capsule Take 4 mg by mouth once daily. Active ibuprofen (MOTRIN) 800 mg tablet Take 800 mg by mouth twice daily as needed. Active TURMERIC (CURCUMIN MISC) Acti ve Active Problems Problem Noted Date Diagnosed Date Bilateral occipital neuralgia 10/21/2015 Neck pain Former smoker Anxiety Family History Medical History Relation Comments Cancer Maternal Grandfather Cancer Maternal Grandmother Hypertension Maternal Grandmother Osteoporosis Maternal Grandmother Stroke Maternal Grandmother Cancer Sister Relation Status Comments Maternal Grandfather Maternal Grandmother Sister Social History Tobacco Use Types Packs/Day Years Used Date Smoking Tobacco: Former Cigarettes Comments:JUST DURING COLLEGE Alcohol Use Standard Drinks/Week Comments Yes 0 (1 standard drink = 0.6 oz pur e alcohol) social Comments No Sex and Gender Information Value Date Recorded Sex Assigned at Not on file Legal Sex Female 3:40 PM EST Gender Identity Not on file Sexual Orientation Not on file Occupation Industry Job Start Date Job End Date teacher Not on file Not on file Not on file Last Filed Vital Signs Vital Sign Reading Time Taken Comments Blood Pressure 133/78 10/21/2015 9:06 AM EST Pulse 115 10/21/2015 9:06 AM EST Temperature - - Respiratory Rate 20 10/21/2015 9:06 AM EST Oxygen Saturation - - Inhaled Oxygen Concentration - - Weight 74.8 kg (165 lb) 10/21/2015 9:06 AM EST SELF REPORT HT/WT Height 177.8 cm (5' 10 ) 10/21/2015 9:0 6 AM EST Body Mass Index 23.68 10/21/2015 9:06 AM EST Plan of Treatment Health Maintenance Due Date Last Done Comments Anxiety Screening 2002 Depression Screening 2002 HIV Screening 2002 Hepatitis C Screening 2002 DTaP,Tdap,Td Vaccine (1 - Tdap) 2003 Hepatitis B Vaccine (1 of 3 - 19+ 3-dose series) 04/30 Cervical Cancer Screening 2005 HPV Vaccine (1 - 3-dose SCDM series) 2011 Mammogram Screening 2024 Influenza Vaccine (#1) 2025 [place] [address] [facility] PPO Care Teams Office Coordinator Receptionist Relationship Specialty Start Date End Date Reymundo Underwood PCP - General Family Medicine 10/14/15
--- OUTSIDE RECORDS SUMMARY | 2025-08-13 09:00 | XMS_ITS | Encounter Summary ---
Author Organization [facility] Address [address] [place] [address] Care Team Providers Care Train Caller Name Role Phone Unallocated, Noms Provider Primary Care Provi jaida Coral Villalobos SEPARATOR TENDER-BRIMMER BLOCKER Unavailable [phone] Encounter Details Date Type Department Care Team (Late Contact Info) Description 04/26/2023 Abstract [facility] [address] [place] [address] Coral Villalobos, SEPARATOR TENDER-BRIMMER BLOCKER [address] [place] [address] Social History Tobacco Use Types Packs/Day Years Used Date Smoking Tobacco: Never Smokeless Tobacco: Never Alcohol Use Standard Drinks/Week Comments Yes 0 (1 standard drink = 0.6 oz pure alcohol) 1-2 drinks less than monthly in the past year, Caffeine intake: 2-3cups per day coffee, diet coke Comments Yes Sex and Gender Information Value Date Recorded Sex Assigned at Not on file Legal Sex Female 7:35 PM EDT Gender Identity Not on file Sexual Orientation Not on file documented as of this encounter Plan of Treatment Upcoming Encounters Date Type Department Care Team (Late Contact Info) Description 08/23/2025 1:30 PM EDT Office Visit [facility] [address] [facility] [place] [phone] Marti Chavez, DIRECTOR SOCIAL [address] [place] [address] 09/21/2025 10:30 AM EDT Ancillary Procedure [facility] [address] [facility] [address] [place] [phone] 09/21/2025 11:00 AM EDT Office Visit [facility] [address] [place] [address] Tess Watson CNM [address] [place], [place] [phone] 06/30/2026 10:50 AM EDT Office Visit [facility] [address] [place] [address] Coral Villalobos, SEPARATOR TENDER-BRIMMER BLOCKER [address] [place] [address] documented as of this encounter Visit Diagnoses Not on filedocumented in this encounter Care Teams Train Caller Relationship Specialty Start Date End Date Unallocated, Latanya Ugalde, [place] [address] PCP - General 04/23/23 Coral Villalobos, SEPARATOR TENDER-BRIMMER BLOCKER [address] [place] [address] PCP - Medical [place] [employer] 05/25/24 07/12/25 documented as of this encounter
--- OUTSIDE RECORDS SUMMARY | 2025-08-13 09:00 | XMS_ITS | Encounter Summary ---
Author Organization [facility] Address [address] [place] [address] Care Team Providers Care Stockholder Name Role Phone Unallocated, Noms Provider Primary Care Provi jaida Coral Villalobos HARDNESS INSPECTOR-HABITAT CONSERVATION PLANNER Unavailable [phone] Encounter Details Date Type Department Care Team (Late Contact Info) Description 06/10/2023 Abstract [facility] [address] [facility] [place] [address] Margarito Case DO [address] [place], [place] [address] Social History Tobacco Use Types Packs/Day Years Used Date Smoking Tobacco: Never Smokeless Tobacco: Never Alcohol Use Standard Drinks/Week Comments Yes 0 (1 standard drink = 0.6 oz pure alcohol) 1-2 drinks less than monthly in the past year, Caffeine intake: 2-3cups per day coffee, diet coke Comments No Sex and Gender Information Value Date Recorded Sex Assigned at Not on file Legal Sex Female 7:35 PM EDT Gender Identity Not on file Sexual Orientation Not on file documented as of this encounter Plan of Treatment Upcoming Encounters Date Type Department Care Team (Late Contact Info) Description 08/23/2025 1:30 PM EDT Office Visit [facility] [address] [facility] [place] [address] Marti Chavez, CHEST PAINTING LEADER [address] [place] [address] 09/21/2025 10:30 AM EDT Ancillary Procedure [facility] [address] [facility] [address] [place] [phone] 09/21/2025 11:00 AM EDT Office Visit [facility] [address] [place] [address] Tess Watson CNM [address] [place], [place] [phone] 06/30/2026 10:50 AM EDT Office Visit [facility] [address] [place] [address] Coral Villalobos, HARDNESS INSPECTOR-HABITAT CONSERVATION PLANNER [address] [place] [address] documented as of this encounter Visit Diagnoses Not on filedocumented in this encounter Care Teams Stockholder Relationship Specialty Start Date End Date Unallocated, Al Ugalde, [place] [address] PCP - General 04/23/23 Coral Villalobos, HARDNESS INSPECTOR-HABITAT CONSERVATION PLANNER [address] [place] [address] PCP - Medical [place] [employer] 05/25/24 07/12/25 documented as of this encounter
--- OUTSIDE RECORDS SUMMARY | 2025-08-13 09:00 | XMS_ITS | Encounter Summary ---
Author Organization [facility] Address [address] [place] [address] Care Team Providers Care Net Developer Consultant Name Role Phone Unallocated, Noms Provider Primary Care Provi jaida Encounter Details Date Type Department Care Team (Late Contact Info) Description 08/03/2025 Bamboo flowsheet [facility] [address] [place] [address] Coral Villalobos, PROJECT TECHNICIAN-PROFESSOR OF THEOLOGY [address] [place] [address] Social History Tobacco Use Types Packs/Day Years Used Date Smoking Tobacco: Never Smokeless Tobacco: Never Alcohol Use Standard Drinks/Week Comments Yes 0 (1 standard drink = 0.6 oz pure alcohol) 1-2 drinks less than monthly in the past year, Caffeine intake: 2-3cups per day coffee, diet coke [place] Depression Scale Answer Date Recorded [place] Depression Scale Total 5 07/10/2023 The thought [...] 1:30 PM EDT Office Visit AL [facility] [address] [place] [address] [place] [address] Marti Chavez, MIRTA [address] [facility] [place] [address] 09/21/2025 10:30 AM EDT Ancillary Procedure [facility] [address] [place] [phone] 09/21/2025 11:00 AM EDT Office Visit [facility] [address] [place] [address] Tess Watson, SILVANAM [address] [place], [place] [phone] 06/30/2026 10:50 AM EDT Office Visit [facility] [address] [place] [address] Coral Villalobos, PROJECT TECHNICIAN-PROFESSOR OF THEOLOGY [address] [place] [address] documented as of this encounter Visit Diagnoses Not on filedocumented in this encounter Care Teams Net Developer Consultant Relationship Specialty Start Date End Date Unallocated, Al Ugalde MD [address] [place] [address] PCP - General 04/23/23 documented as of this encounter
--- OUTSIDE RECORDS SUMMARY | 2025-08-13 09:00 | XMS_ITS | Encounter Summary ---
Author Organization [facility] Address [address] [place] [address] Care Team Providers Care Senior Business Consultant Name Role Phone Unallocated, Noms Provider Primary Care Provi jaida Encounter Details Date Type Department Care Team (Latest Contact Info) Description 08/03/2025 Travel Social History Tobacco Use Types Packs/Day Years Used Date Smoking Tobacco: Never Smokeless Tobacco: Never Alcohol Use Standard Drinks/Week Comments Yes 0 (1 standard drink = 0.6 oz pure alcohol) 1-2 drinks less than monthly in the past year, Caffeine intake: 2-3cups per day coffee, diet coke [place] Depression Scale Answer Date Recorded [place] Depression Scale Total 5 07/10/2023 The thought [...] Description 08/23/2025 1:30 PM EDT Office Visit [facility] [address] [facility] [place] [address] Marti Chavez, MIRTA [address] [facility] [place] [address] 09/21/2025 10:30 AM EDT Ancillary Procedure [facility] [address] [place] [address] 09/21/2025 11:00 AM EDT Office Visit AL [facility] [address] [place] [phone] Tess Watson CNM [address] [place], [place] [phone] 06/30/2026 10:50 AM EDT Office Visit [facility] [address] [place] [phone] Coral Villalobos, [place]SECALLS NURSE-SENIOR GIS ANALYST [address] [place] [address] documented as of this encounter Visit Diagnoses Not on filedocumented in this encounter Care Teams Senior Business Consultant Relationship Specialty Start Date End Date Unallocated, Al Ugalde MD [address] [place] [address] PCP - General 04/23/23 documented as of this encounter
--- OUTSIDE RECORDS SUMMARY | 2025-08-13 09:00 | XMS_ITS | Clinical Summary ---
Author Organization [facility] Address [address] [place] [address] Care Team Providers Care Seamless Tube Drawer Name Role Phone Unallocated, Noms Provider Primary Care Provi jaida Allergies Active Allergy Reactions Criticality Noted Date Comments Promethazine Unknown 04/24/2023 Tongue numbness Medications ibuprofen 800 MG tablet Take 800 mg by mouth every 6 (six) hours if needed for moderate pain. Active Active Problems No known active problems Encounters Date Type Department Care Team Description 08/03/2025 4:05 PM EDT Office Visit [facility] [place] [facility] [address] [facility] [address] [place] [phone] Coral Villalobos, BRIMMING MACHINE OPERATOR-PRINCIPAL TRAINER Melanocytic nevi of trunk (Primary Dx); Lentigines; Seborrheic keratosis 08/03/2025 [facility] [address] [facility] [address] [place] [phone] Coral Villalobos APRN-PRINCIPAL TRAINER 08/03/2025 Travel 07/14/2025 Abstract [facility] [place] [facility] [place] [address] Margarito Case DO 07/13/2025 1:00 PM EDT [place] [address] Manpreet, Margarito, DO Menorrhagia with regular cycle 06/14/2025 9:20 AM EDT Consult [facility] [address] [facility] [address] Margarito Case, DO Menorrhagia with regular cycle 06/14/2025 Bamboo flowsheet [facility] [place] [facility] [address] [facility] [address] Margarito Case, DO 06/02/2025 Orders Only [facility] [address] [place] [address] Tess Watson CNM Menorrhagia with regular cycle (Primary Dx) 06/02/2025 Results Follow-Up [facility] [address] [place] [phone] Tess Watson CNM US pelvis transvaginal 05/21/2025 10:00 AM EDT Ancillary Procedure [facility] [address] [facility] [address] [place] [phone] Menorrhagia with regular cycle 05/21/2025 Travel 05/18/2025 10:00 AM EDT Office Visit [facility] [address] [place] [phone] Tess Watson CNM Menorrhagia with regular cycle; Breast cancer screening by mammogram 05/18/2025 [facility] [address] [place] [address] Tess Watson CNM from Last 3 Months Family History Medical History Relation Name Comments Atrial fibrillation Father Basal cell carcinoma Father cheek Heart disease Father Hypertension Father Melanoma Maternal Grandmother degenerative disc disease Mother Anxiety disorder Sibling Acne Sister 1 alicia medulloblastoma Sister 2 carlos alberto of cerebellu m brain tumor Relation Name Status Comments Daughter 1 daughter, hea lthy Father Alive Maternal Grandmother Mother Alive Sibling Sister 1 alicia Sister 2 carlos alberto (Age 11) Son 1 son Social History Tobacco Use Types Packs/Day Years Used Date Smoking Tobacco: Never Smokeless Tobacco: Never Tobacco Cessation:Counseling Given: Not Answered Alcohol Use Standard Drinks/Week Comments Yes 0 (1 standard drink = 0.6 oz pure alcohol) 1-2 drinks less than monthly in the past year, Caffeine intake: 2-3cups per day coffee, diet coke [place] Depression Scale Answer Date Recorded [place] Depression Scale Total 5 07/10/2023 The thought of harming myself has occurred to me . Never 07/10/2023 Comments No Sex and Gender Information Value Date Recorded Sex Assigned at Not on file Legal Sex Female 7:35 PM EDT Gender Identity Not on file Sexual Orientation Not on file Last Filed Vital Signs Vital Sign Reading Time Taken Comments Blood Pressure 120/80 07/13/2025 1:23 PM EDT Pulse 70 06/12/2023 3:30 PM EDT Temperature - - Respiratory Rate - - Oxygen Saturation - - Inhaled Oxygen Concentration - - Weight 81.4 kg (179 lb 6.4 oz) 07/13/2025 1:23 P M EDT Height 180.3 cm (5' 11 ) 06/26/2023 9:50 AM EDT Body Mass Index 25.02 06/26/2023 9:50 AM EDT Plan of Treatment Upcoming Encounters Date Type Department Care Team (Late st Contact Info) Description 08/23/2025 1:30 PM EDT Office Visit [facility] [address] [facility] [address] Marti Chavez, MIRTA [address] [facility] [place] [address] 09/21/2025 10:30 AM EDT Ancillary Procedure [facility] [address] [address] 09/21/2025 11:00 AM EDT Office Visit [facility] [address] [place] [address] Tess Watson CNM [address] [place] [address] 06/30/2026 10:50 AM EDT Office Visit [facility] [address] [place] [address] Coral Villalobos, BRIMMING MACHINE OPERATOR-PRINCIPAL TRAINER [address] [place] [address] Health Maintenance Due Date Last Done Comments Mammogram 07/14/2025 07/14/2024 Influenza Vaccine (#1) 2025 Pap Smear 07/13/2027 07/13/2024 Cervical Cancer Screening 07/10/2028 HPV/Cotest 07/10/2028 07/10/2023, 07/0 05/2022, 05/03/2021, Additional history exists Procedures Procedure Name Priority Date/Time Associated Diagnosis Comments POCT , URINE Routine 07/13/2025 1:29 PM EDT Menorrhagia with regular cycle US PELVIS TRANSVAGINAL Routine 10:25 AM EDT Menorrhagia with regular cycle BI MAMMOGRAM SCREENING TOMOSYNTHESIS BILATERAL Routine 07/14/2024 12:12 PM EDT Breast cancer screening by mammogram THINPREP IMAGING PAP AND HPV DNA REFLEX HPV 16,18 Routine 07/13/2024 4:01 PM EDT Screening for cervical cancer THINPREP PAP AND HPV MRNA E6/E7 W/RFL HPV 16,18/45 Routine 07/10/2023 12:12 PM EDT Screening for cervical cancer from Last 3 Months or Most Recently Relevant to Health Maintenance Results * POCT , urine manually resulted (07/13/2025 1:29 PM EDT) Preg Test, Ur Negative Negative Urine 07/13/2025 1:29 PM EDT Margarito Case DO POINT OF CARE TEST ENTER/EDIT OR DERABLES Final Result * US pelvis transvaginal (05/21/2025 10:25 AM EDT) Anatomical Region Laterality Modality Pelvis Ultrasound 05/23/2025 10:0 7 PM EDT Narrative 05/23/2025 10:07 PM EDT EXAM: US PELVIS TRANSVAGINAL HISTORY: Heavy menses. COMPARISON: Pelvic ultrasound 05/19/2021. TECHNIQUE: Two-dimensional transvaginal grayscale ultrasound imaging of the pelvis was performed. Color flow Doppler imaging of the ovaries was also performed. FINDINGS: UTERUS 10.2 x 5.4 x 7.0 cm The uterus is anteverted in position and demonstrates a normal, homogeneous echotexture. There is a 3.8 cm anterior fibroid. ENDOMETRIUM 1.2 cm The endometrium demonstrates a normal, homogeneous echotexture. RIGHT OVARY 3.7 x 2.3 x 2.3 cm The right ovary demonstrates a normal echotexture. There is normal color Doppler flow. LEFT OVARY 4.0 x 3.2 x 3.8 cm The left ovary demonstrates a normal echotexture. There is normal color Doppler flow. There is a 2.5 cm dominant follicle. Mild fluid is present within the cul-de-sac and right adnexa. IMPRESSION: 1. Uterine fibroid. 2. Normal color Doppler flow within the bilateral ovaries. 3. Mild fluid within the cul-de-sac and right adnexa. Interpreted by: Electronically signed by SANGEETHA HENSLEY II, MD, PHD at 23-May-2025 10:05:50 PM [facility] [place] Procedure Note Sangeetha Hensley MD - 05/23/2025 EXAM: US PELVIS TRANSVAGINAL HISTORY: Heavy menses. COMPARISON: Pelvic ultrasound 05/19/2021. TECHNIQUE: Two-dimensional transvaginal grayscale ultrasound imaging ofthe pelvis was performed. Color flow Doppler imaging of the ovaries wasalso performed. FINDINGS: UTERUS 10.2 x 5.4 x 7.0 cm The uterus is anteverted in position and demonstrates a normal,homogeneous echotexture. There is a 3.8 cm anterior fibroid. ENDOMETRIUM 1.2 cm The endometrium demonstrates a normal, homogeneous echotexture. RIGHT OVARY 3.7 x 2.3 x 2.3 cm The right ovary demonstrates a normal echotexture. There is normal colorDoppler flow. LEFT OVARY 4.0 x 3.2 x 3.8 cm The left ovary demonstrates a normal echotexture. There is normal colorDoppler flow. There is a 2.5 cm dominant follicle. Mild fluid is present within the cul-de-sac and right adnexa. IMPRESSION: 1. Uterine fibroid. 2. Normal color Doppler flow within the bilateral ovaries. 3. Mild fluid within the cul-de-sac and right adnexa. Interpreted by: Electronically signed by SANGEETHA HENSLEY II, MD, PHD [id number] 10:05:50 PM [facility] [place] us Tess PINA IMG US PROCEDURES Final Resu lt * Bilateral screening mammogram with tomosynthesis (07/14/2024 12:12 PM EDT) Anatomical Region Laterality Modality Breast Bilateral Mammography 07/14/2024 1:47 PM EDT Impressions 07/14/2024 2:04 PM EDT BIRADS 1 - Negative Follow-up: Routine Screening Mamm Board Certified Radiologists. Accredited by the ACR and FDA. MAMMOGRAPHY IS VERY IMPORTANT TO YOUR HEALTH. THE [place] [employer] GUIDELINES RECOMMEND THAT WOMEN 40 YEARS OF AGE AND OLDER SHOULD HAVE A MAMMOGRAM EVERY YEAR. A REMINDER LETTER WILL BE SENT AT THE APPROPRIATE TIME. THIS FACILITY UTILIZES A REMINDER SYSTEM TO ENSURE ALL PATIENTS RECEIVE REMINDER NOTIFICATIONS AT THE APPROPRIATE TIME BASED ON THE RECOMMENDATIONS OF THIS EXAM. THIS INCLUDES REMINDERS FOR ROUTINE SCREENING MAMMOGRAMS, DIAGNOSTIC MAMMOGRAMS IN WHICH THE PATIENT IS ASKED TO RETURN FOR ADDITIONAL VIEWS, OR OTHER BREAST IMAGING INTERVENTIONS WHEN APPROPRIATE. THE PATIENT WILL BE PLACED IN THE APPROPRIATE REMINDER SYSTEM INCLUDING A REMINDER AT THE APPROPRIATE TIME FOR ANY PENDING ADDITIONAL VIEWS. TRANSCRIBED BY: ELECTRONICALLY SIGNED BY: Vinh Blair MD Narrative 07/14/2024 2:04 PM EDT EXAMINATION: BI MAMMOGRAM SCREENING TOMOSYNTHESIS BILATERAL CLINICAL HISTORY:breast cancer screen COMPARISON: There are no previous mammograms available for comparison. RESULT: Density: There are scattered areas of fibroglandular density There is no suspicious mass, asymmetry, architectural distortion, or calcification Procedure Note Vinh Blair MD - 07/14/2024 EXAMINATION: BI MAMMOGRAM SCREENING TOMOSYNTHESIS BILATERAL CLINICAL HISTORY:breast cancer screen COMPARISON: There are no previous mammograms available for comparison. RESULT: Density: There are scattered areas of fibroglandular density There is no suspicious mass, asymmetry, architectural distortion, orcalcification IMPRESSION: BIRADS 1 - Negative Follow-up: Routine Screening Mamm Board Certified Radiologists. Accredited by the ACR and FDA. MAMMOGRAPHY IS VERY IMPORTANT TO YOUR HEALTH. THE [place] CAN[employer] SOCIETYGUIDELINES RECOMMEND THAT WOMEN 40 YEARS OF AGE AND OLDER SHOULD HAVE AMAMMOGRAM EVERY YEAR. A REMINDER LETTER WILL BE SENT AT THE APPROPRIATE TIME. THIS FACILITYUTILIZES A REMINDER SYSTEM TO ENSURE ALL PATIENTS RECEIVE REMINDERNOTIFICATIONS AT THE APPROPRIATE TIME BASED ON THE RECOMMENDATIONS OF THISEXAM. THIS INCLUDES REMINDERS FOR ROUTINE SCREENING MAMMOGRAMS, DIAGNOSTICMAMMOGRAMS IN WHICH THE PATIENT IS ASKED TO RETURN FOR ADDITIONAL VIEWS,OR OTHER BREAST IMAGING INTERVENTIONS WHEN APPROPRIATE. THE PATIENT WILLBE PLACED IN THE APPROPRIATE REMINDER SYSTEM INCLUDING A REMINDER AT THEAPPROPRIATE TIME FOR ANY PENDING ADDITIONAL VIEWS. TRANSCRIBED BY: ELECTRONICALLY SIGNED BY: Vinh Blair MD us Tess Watson CN IMG BI PROCEDURES Final Resu lt * THINPREP IMAGING PAP AND HPV DNA REFLEX HPV 16,18 (07/13/2024 4:01 PM EDT) CLINICAL INFORMATION [facility] Comment:None given LMP [facility] Comment:NONE GIVEN PREV. PAP [facility] Comment:NONE GIVEN PREV. BX [facility] Comment:NONE GIVEN SOURCE [facility] Comment:None given STATEMENT OF ADEQUACY [facility] Comment: Satisfactory for evaluation. Endocervical/transformation zone component present. INTERPRETATION/RESU LT [facility] Comment: Cytology Results: Negative for intraepithelial lesion or malignancy. COMMENT [facility] Comment: This Pap test has been evaluated with computer assisted technology. SLEEVE TURNER [facility] Comment: LXT, CT(ASCP) CT screening location: [place] [address]. REVIEW SLEEVE TUR[facility] Comment: MANUEL, SCT(ASCP) CT Screening Location: [place] [address]. (ALWAYS MESSAGE) [facility] Comment: EXPLANATORY NOTE: The Pap is a screening test for cervical cancer. It is not a diagnostic test and is subject to false negative and false positive results. It is most reliable when a satisfactory sample, regularly obtained, is submitted with relevant clinical findings and history, and when the Pap result is evaluated along with historic and current clinical information. HPV DNA, HIGH RISK, CERVICAL Not Detected NOT DETECTED [facility] Comment: Not Detected High Risk HPV types (16,18,31,33,35,39,45,51,52, 56,58,59,66,68) were not detected. Other HPV types which cause anogenital lesions may be present. The significance of the other types of HPV in malignant processes has not been established. Methodology: Real Time PCR Swab Cervical swab / Unknown 07/13/2024 4:01 PM EDT 07/14/2024 2:40 AM EDT Narrative Resulting Agency Comment Performing Organization Information Site ID: [id number] Name: [facility] Address: [address] [place] [address] [place], [place] Director: Juan Antonio Mcmillan M.D.,PhD Site ID: [id number] Name: [facility] Address: [address] [place] [id number] Director: Larry Huerta MD Tess Watson [facility] CYTOLOGY ORDERABLES Selin jackson Result [facility] * THINPREP PAP AND HPV MRNA E6/E7 W/RFL HPV 16,18/45 (07/10/2023 12:12 PM EDT) CLINICAL INFORMATION [facility] Comment:None given LMP [facility] Comment:NONE GIVEN PREV. PAP [facility] Comment:NONE GIVEN PREV. BX [facility] Comment:NONE GIVEN SOURCE [facility] Comment:None given STATEMENT OF ADEQUACY [facility] Comment: Satisfactory for evaluation. Endocervical/transformation zone component present. INTERPRETATION/RESU LT [facility] Comment: Cytology Results: Negative for intraepithelial lesion or malignancy. SLEEVE TURNER [facility] Comment: CMB, CT(ASCP) CT Screening Location: [facility] [place], [address] [place] [id number] (ALWAYS MESSAGE) [facility] Comment: EXPLANATORY NOTE: The Pap is a screening test for cervical cancer. It is not a diagnostic test and is subject to false negative and false positive results. It is most reliable when a satisfactory sample, regularly obtained, is submitted with relevant clinical findings and history, and when the Pap result is evaluated along with historic and current clinical information. HPV MRNA E6/E7 Not Detected Not Detected [employer] Comment: Methodology: Him Clerk-Mediated Amplification This assay detects E6/E7 viral messenger RNA (mRNA) from 14 high-risk HPV types (16,18,31,33,35,39,45,51,52,56,58,59,66,68). Cervical sources are required for HPV testing. If a vaginal source from a patient who has had a total hysterectomy with removal of cervix was submitted, please contact the testing laboratory for alternative testing options. For additional information, please refer to http://education.Cybronics.FuelFilm/faq/KMY203l0 (This link if provided for information/ educational purposes only.) 07/10/2023 12:1 2 PM EDT 07/11/2023 5:24 AM EDT Narrative Resulting Agency Comment Performing Organization Information Site ID: [id number] Name: [facility] Address: [address] [place] [address], [address] [place] [phone] Director: Larry Huerta MD Tess Watson CNM LAB BLOOD ORDERABLES Final R esult [facility] from Last 3 Months or Most Recently Relevant to Health Maintenance Insurance [employer] Care Teams Seamless Tube Drawer Relationship Specialty Start Date End Date Unallocated, Noms Provider, [address] [place] [address] PCP - General 04/23/23
--- OUTSIDE RECORDS SUMMARY | 2025-08-13 09:00 | XMS_ITS | Encounter Summary ---
Author Organization [facility] Address [address] [place] [address] Care Team Providers Care Motion Picture Set Worker Name Role Phone Unallocated, Noms Provider Primary Care Provi jaida Encounter Details Date Type Department Care Team (Late Contact Info) Description 07/14/2025 Abstract [facility] [address] [place] [address] Margarito Case DO [address] [place] [place], [place] [address] Social History Tobacco Use Types Packs/Day Years Used Date Smoking Tobacco: Never Smokeless Tobacco: Never Alcohol Use Standard Drinks/Week Comments Yes 0 (1 standard drink = 0.6 oz pure alcohol) 1-2 drinks less than monthly in the past year, Caffeine intake: 2-3cups per day coffee, diet coke [place] Depression Scale Answer Date Recorded [place] Depression Scale Total 5 07/10/2023 The thought [...] PM EDT Office Visit LATANYA SAMAYOA [address] [place] [phone] Marti Chavez, TECHNICAL MARKETING CONSULTANT [address] [facility] [place] [address] 09/21/2025 10:30 AM EDT Ancillary Procedure [facility] [address] [place] [address] 09/21/2025 11:00 AM EDT Office Visit [facility] [address] [place] [address] Tess Watson, CNM [address] [place], [place] [phone] 06/30/2026 10:50 AM EDT Office Visit [facility] [address] [place] [address] Coral Villalobos, QUOTATION CLERK-PHOTOGRAPHIC LABORATORY TECHNICIAN [address] [place] [address] documented as of this encounter Visit Diagnoses Not on filedocumented in this encounter Care Teams Motion Picture Set Worker Relationship Specialty Start Date End Date Unallocated, Nomcee Ugal[place] MD [address] [place] [address] PCP - General 04/23/23 documented as of this encounter
--- OUTSIDE RECORDS SUMMARY | 2025-08-13 09:00 | XMS_ITS | Encounter Summary ---
Author Organization [facility] Address [address] [place] [address] Care Team Providers Care Extrusion Technician Name Role Phone Unallocated, Noms Provider Primary Care Provi jaida Coral Villalobos LIFE TEACHER-CLINICAL CYTOPATHOLOGIST Unavailable [phone] Encounter Details Date Type Department Care Team (Latest Contact Info) Description 06/02/2025 Results Follow-Up [facility] [address] [place] [phone] Tess Watson, CNM [address] [place], [place] [phone] US pelvis transvaginal Social History Tobacco Use Types Packs/Day Years Used Date Smoking Tobacco: Never Smokeless Tobacco: Never Alcohol Use Standard Drinks/Week Comments Yes 0 (1 standard drink = 0.6 oz pure alcohol) 1-2 drinks less than monthly in the past year, Caffeine intake: 2-3cups per day coffee, diet coke [place] Depression Scale Answer Date Recorded [place] Depression Scale Total 5 07/10/2023 The thought [...] EDT Office Visit [facility] [address] [facility] [place] [address] Marti Chavez, MIRTA [address] [facility] [place] [address] 09/21/2025 10:30 AM EDT Ancillary Procedure [facility] [address] [place] [phone] 09/21/2025 11:00 AM EDT Office Visit [facility] [address] [place] [phone] Tess Watson CNM [address] [facility], [place] [phone] 06/30/2026 10:50 AM EDT Office Visit [facility] [address] [place] [address] Coral Villalobos, LIFE TEACHER-CLINICAL CYTOPATHOLOGIST [address] [place] [address] documented as of this encounter Visit Diagnoses Not on filedocumented in this encounter Care Teams Extrusion Technician Relationship Specialty Start Date End Date Unallocated, [place] [address] [place] [id number] PCP - General 04/23/23 Coral Villalobos, LIFE TEACHER-CLINICAL CYTOPATHOLOGIST [address] [place] [address] PCP - Medical [place] [employer] 05/25/24 07/12/25 documented as of this encounter
--- OUTSIDE RECORDS SUMMARY | 2025-08-13 09:00 | XMS_ITS | Encounter Summary ---
Author Organization [facility] Address [address] [place] [address] Care Team Providers Care Campus Ambassador Name Role Phone Unallocated, Noms Provider Primary Care Provi jaida Coral Villalobos CLINICAL PRODUCT MANAGER-WINDOWS LAPTOP TECHNICIAN Unavailable [phone] Encounter Details Date Type Department Care Team (Late Contact Info) Description 04/26/2023 Orders Only [facility] [address] [place] [address] Ashley Hugo MA Advanced maternal age in multigravida, third trimester ([facility]) Social History Tobacco Use Types Packs/Day Years [...] 1:30 PM EDT Office Visit [facility] [address] [place] [address] Marti Chavez, CONTACT MANAGER [address] [place] [address] 09/21/2025 10:30 AM EDT Ancillary Procedure [facility] [address] [place] [phone] 09/21/2025 11:00 AM EDT Office Visit [facility] [address] [facility] [place] [address] Tess Watson CNM [address] [place] [address] 06/30/2026 10:50 AM EDT Office Visit [facility] [place] [facility] [address] [place] [phone] Coral Villalobos APRN-WINDOWS LAPTOP TECHNICIAN [address] [place] [address] documented as of this encounter Results * US OB follow up transabdominal approach (05/03/2023 12:54 PM EDT) Anatomical Region Laterality Modality Body Ultrasound 05/08/2023 2:13 PM EDT Impressions 05/08/2023 2:16 PM EDT Single live intrauterine with estimated sonographic gestational age 35 weeks, 2 days. Estimated weight 2726 g. ELECTRONICALLY SIGNED BY: Jori Modi MD Narrative 05/08/2023 2:16 PM EDT FINDINGS: Single live intrauterine . heart rate 141 bpm. Spontaneous movement identified. Fetus in vertex position. Cervical length 4 cm. Cervix is closed. SALVADOR 17.3 cm. Estimated sonographic gestational age 35 weeks, 2 days. This compares with 35 weeks, 0 days by dates. Estimated sonographic date of delivery June 05, 2023. Estimated weight 2762 g (61.8%, by LMP percentile). BPD 8.3 cm. FL 6.9 cm. AC 32.8 cm. HC 30.6 cm. Procedure Note SignJori jules MD - 05/08/2023 FINDINGS: Single live intrauterine . heart rate 141 bpm. Spontaneous movement identified. Fetus in vertex position. Cervical length 4 cm. Cervix is closed. SALVADOR 17.3 cm. Estimated sonographic gestational age 35 weeks, 2 days. This compares with 35 weeks, 0 days by dates. Estimated sonographic date of delivery June 05, 2023. Estimated weight 2762 g (61.8%, by LMP percentile). BPD 8.3 cm. FL 6.9 cm. AC 32.8 cm. HC 30.6 cm. IMPRESSION: Single live intrauterine with estimated sonographic gestationalage 35 weeks, 2 days. Estimated weight 2726 g. ELECTRONICALLY SIGNED BY: Jori Modi MD us Tess PINAM IMG OB US PROCEDURES Final R esult documented in this encounter Visit Diagnoses Diagnosis Advanced maternal age in multigravida, third trimester ([facility]) Advanced maternal age in multigravida, third trimester ([facility]CC) documented in this encounter Care Teams Campus Ambassador Relationship Specialty Start Date End Date Unallocated, Noms Provider, [address] [place] [address] PCP - General 04/23/23 Coral Villalobos APRN-WINDOWS LAPTOP TECHNICIAN [address] [place] [address] PCP - Medical [place] Commercial 05/25/24 07/12/25 documented as of this encounter
--- OUTSIDE RECORDS SUMMARY | 2025-08-13 09:01 | XMS_ITS | Encounter Summary ---
Author Organization [facility] Address [address] [place] [address] Care Team Providers Care Wirer Street Light Name Role Phone Unallocated, Noms Provider Primary Care Provi jaida Coral Villalobos FAMILY INTERVENTION SPECIALIST-BEAMER HAND Unavailable Encounter Details Date Type Department Care Team (Late Contact Info) Description 06/05/2023 Abstract [facility] [address] [facility] [place] [address] Margarito Case DO [address] [facility] [address], [place] [address] Social History Tobacco Use Types Packs/Day Years [...] PM EDT Office Visit AL [facility] [address] [facility] [place] [address] Marti Chavez, FILM EDITOR SUPERVISOR [address] [place] [address] 09/21/2025 10:30 AM EDT Ancillary Procedure AL [facility] [address] [facility] [address] [place] [phone] 09/21/2025 11:00 AM EDT Office Visit [facility] [address] [place] [address] Tess Watson CNM [address] [place], [place] [id number] 06/30/2026 10:50 AM EDT Office Visit [facility] [address] [place] [address] Coral Villalobos, FAMILY INTERVENTION SPECIALIST-BEAMER HAND [address] [place] [address] documented as of this encounter Visit Diagnoses Not on filedocumented in this encounter Care Teams Wirer Street Light Relationship Specialty Start Date End Date Unallocated, Al [place], [place] [address] PCP - General 04/23/23 Coral Villalobos, FAMILY INTERVENTION SPECIALIST-BEAMER HAND [address] [place] [address] PCP - Medical [place] [employer] 05/25/24 07/12/25 documented as of this encounter
--- OUTSIDE RECORDS SUMMARY | 2025-08-13 09:01 | XMS_ITS | Clinical Summary ---
Author Organization [facility] Address [address] [facility] [address], [address] [place] [address] Care Team Providers Care Agriculture Technician Name Role Phone Reymundo Underwood MD Primary Care Provider Unav ailable Allergies Active Allergy Reactions Criticality Noted Date Comments Promethazine Hcl 06/28/2015 Medications DULoxetine HCl (CYMBALTA PO) Take by mouth Active Active Problems No known active problems Social History Tobacco Use Types Packs/Day Years Used Date Smoking Tobacco: Never Smokeless Tobacco: Never Alcohol Use Standard Drinks/Week Comments Yes 0 (1 standard drink = 0.6 oz pur e alcohol) Comments Unknown Sex and Gender Information Value Date Recorded Sex Assigned at Not on file Legal Sex Female 10:03 PM EDT Gender Identity Not on file Sexual Orientation Not on file Last Filed Vital Signs Vital Sign Reading Time Taken Comments Blood Pressure 120/78 06/28/2015 11:40 PM EDT Pulse 89 06/28/2015 11:40 PM EDT Temperature 36.8 C (98.2 F) 06/28/2015 10:05 PM EDT Respiratory Rate 16 06/28/2015 11:40 PM EDT Oxygen Saturation 99% 06/28/2015 11:40 PM EDT Inhaled Oxygen Concentration - - Weight 72.6 kg (160 lb) 08/25/2015 9:38 AM EDT Height 180.3 cm (5' 11 ) 08/25/2015 9:38 AM EDT Body Mass Index 22.32 08/25/2015 9:38 AM EDT Plan of Treatment Not on file Insurance [employer] Care Teams Agriculture Technician Relationship Specialty Start Date End Date Reymundo Underwood MD PCP - General 07/27/15
--- OUTSIDE RECORDS SUMMARY | 2025-08-13 09:01 | XMS_ITS | Encounter Summary ---
Author Organization [facility] Address [address] [place] [address] Care Team Providers Care Gasoline Engine Inspector Name Role Phone Unallocated, Noms Provider Primary Care Provi jaida Coral Villalobos ESTIMATOR-SOCIAL SCIENCE MANAGER Unavailable Encounter Details Date Type Department Care Team (Late Contact Info) Description 05/29/2023 Abstract AL SAM[facility]OA 102 [facility] [place] [address] Margarito Case DO 102 [facility] [address], [place] [address] Social History Tobacco Use Types Packs/Day Years [...] PM EDT Office Visit AL [facility] 102 [facility] [place] [address] Marti Chavez, LEDGER CLERK [address] [place] [address] 09/21/2025 10:30 AM EDT Ancillary Procedure [facility] [address] [facility] [address] [place] [phone] 09/21/2025 11:00 AM EDT Office Visit [facility] [address] [place] [address] Tess Watson CNM [address] [place], [place] [id number] 06/30/2026 10:50 AM EDT Office Visit [facility] [address] [place] [address] Coral Villalobos, ESTIMATOR-SOCIAL SCIENCE MANAGER [address] [place] [address] documented as of this encounter Visit Diagnoses Not on filedocumented in this encounter Care Teams Gasoline Engine Inspector Relationship Specialty Start Date End Date Unallocated, Al Ugalde, [place] [address] PCP - General 04/23/23 Coral Villalobos, ESTIMATOR-SOCIAL SCIENCE MANAGER [address] [place] [address] PCP - Medical [place] [employer] 05/25/24 07/12/25 documented as of this encounter
--- OUTSIDE RECORDS SUMMARY | 2025-08-13 09:01 | XMS_ITS | Encounter Summary ---
Author Organization [facility] Address [address] [place] [address] Care Team Providers Care Foxer Name Role Phone Unallocated, Noms Provider Primary Care Provi jaida Coral Villalobos DROP WIRE STRINGER-BATCH MIXING TRUCK DRIVER Unavailable Encounter Details Date Type Department Care Team (Late Contact Info) Description 06/05/2023 Abstract AL [facility] 102 [facility] [place] [address] Margarito Case DO [address] [facility] [address], [place] [address] Social History Tobacco Use Types Packs/Day Years [...] PM EDT Office Visit AL [facility] 102 [facility] [place] [address] Marti Chavez, FLOWER MAKER [address] [place] [address] 09/21/2025 10:30 AM EDT Ancillary Procedure [facility] [address] [facility] [address] [place] [phone] 09/21/2025 11:00 AM EDT Office Visit [facility] [address] [place] [address] Tess Watson CNM [address] [place], [place] [phone] 06/30/2026 10:50 AM EDT Office Visit [facility] [address] [place] [address] Coral Villalobos, DROP WIRE STRINGER-BATCH MIXING TRUCK DRIVER [address] [place] [address] documented as of this encounter Visit Diagnoses Not on filedocumented in this encounter Care Teams Foxer Relationship Specialty Start Date End Date Unallocated, Al Ugalde, [place] [address] PCP - General 04/23/23 Coral Villalobos, DROP WIRE STRINGER-BATCH MIXING TRUCK DRIVER [address] [place] [address] PCP - Medical [place] [employer] 05/25/24 07/12/25 documented as of this encounter
--- OUTSIDE RECORDS SUMMARY | 2025-08-13 09:01 | XMS_ITS | Encounter Summary ---
Author Organization [facility] Address [address] [place] [address] Care Team Providers Care Edge Burnisher Name Role Phone Unallocated, Noms Provider Primary Care Provi jaida Coral Villalobos COCOA MILL OPERATOR-REAL ESTATE SERVICES COORDINATOR Unavailable Encounter Details Date Type Department Care Team (Late Contact Info) Description 06/07/2023 Abstract AL [facility] 102 [facility] [place] [address] Margarito Case DO [address] [facility] [address], [place] [address] Social History Tobacco Use Types Packs/Day Years [...] PM EDT Office Visit AL [facility] 102 [facility] [place] [address] Marti Chavez, FOOD QUALITY TECHNICIAN [address] [place] [address] 09/21/2025 10:30 AM EDT Ancillary Procedure [facility] [address] [facility] [address] [place] [phone] 09/21/2025 11:00 AM EDT Office Visit [facility] [address] [place] [address] Tess Watson CNM [address] [place], [place] [phone] 06/30/2026 10:50 AM EDT Office Visit [facility] [address] [place] [address] Coral Villalobos, COCOA MILL OPERATOR-REAL ESTATE SERVICES COORDINATOR [address] [place] [address] documented as of this encounter Visit Diagnoses Not on filedocumented in this encounter Care Teams Edge Burnisher Relationship Specialty Start Date End Date Unallocated, Al Ugalde, [place] [address] PCP - General 04/23/23 Coral Villalobos, COCOA MILL OPERATOR-REAL ESTATE SERVICES COORDINATOR [address] [place] [address] PCP - Medical [place] [employer] 05/25/24 07/12/25 documented as of this encounter
[2025-08-13 09:09] LABS: Hematocrit 39.8 % (36.0-48.0); Hemoglobin 13.2 g/dL (12.0-16.0); Immature Granulocytes Abs Auto 0.02 10^3/uL (0.00-0.03); Immature Granulocytes Pct Auto 0.3 % (0.0-0.5); Lymphocytes Absolute Auto 2.1 10^3/uL (1.2-3.8); Mean Corpuscular HGB Conc 33.2 g/dL (29.9-35.2); Mean Corpuscular Hemoglobin 28.5 pg (26.7-34.0); Mean Corpuscular Volume 86.0 fL (81.0-99.0); Platelet Count 251 10^3/uL (150-450); Red Blood Count 4.63 10^6/uL (4.20-5.40); White Blood Count 7.7 10^3/uL (4.0-11.0)
[2025-08-13 09:25] VITALS: BP 132/84; PULSE 84; TEMP 36.1; O2SAT 94; BMI 25.6
--- NOTE | 2025-08-13 11:54 | PM.ONB ---
Brief Operative Note Date of procedure: 08/13/25 Pre-op diagnosis general: menorrhagia Post-op diagnosis: same as pre-op Procedure: NAME OF PROCEDURE: [ ] Sabiha endometrial ablation with hysteroscopy. PROCEDURE: The patient was taken back to the OR where she was prepped and draped in the normal sterile fashion after being placed in the dorsal lithotomy position, after being placed under general anesthesia without difficulty.? A weighted speculum was placed into the vagina. The anterior lip was grasped with a single tooth tenaculum. The patient was then sounded to approximated 8cm. The patient?s cervix was gently dilated using hegardilators. The hysteroscope was passed through the cervix into the uterus where both ostia were seen. No gross evidence of polyps, fibroids or malignancy. The cervical length was noted to be 4 cm. The total cavity length is 4cm.? The Sabiha ablation apparatus was set to approximately 4cm in length. This was placed through the cervix and into the uterus. After the seal was tested, at that time the total ablation of 120 seconds was performed with the Sabiha withoutdifficulty. All instruments were removed from the vagina. Excellent hemostasis noted.? Sponge and lap count correct times 2.? Patient taken to recovery in stable condition. Anesthesia: MAC Surgeon: Margarito Case Estimated blood loss (mL): 5 Pathology: none sent Condition: stable Disposition: PACU Urinary Catheter Management Urinary Catheter Management Urethral: Cath placed during this visit: no
[2025-08-13 11:58] VITALS: BP 132/78; PULSE 83; O2SAT 98
[2025-08-13 12:13] VITALS: BP 129/82; PULSE 76; O2SAT 98
[2025-08-13 12:28] VITALS: BP 126/79; PULSE 82; O2SAT 98
[2025-08-13 12:43] VITALS: BP 128/82; PULSE 78; O2SAT 99
[2025-08-13 13:13] VITALS: BP 132/77; PULSE 83; O2SAT 98
== END 2025-08-13 13:20 | disposition home or self-care (01) ==
LOC: SURGOUT 08:58
PROVIDERS: Visit Provider Obstetrics & Gynecology
PROC: (CPT 952; principal; 2025-08-13 10:10)
DX: N92.0 Excessive and frequent menstruation with regular cycle (principal); N93.9 Abnormal uterine and vaginal bleeding, unspecified; R10.2 Pelvic and perineal pain; M47.812 Spondylosis without myelopathy or radiculopathy, cervical region; M54.81 Occipital neuralgia; K21.9 Gastro-esophageal reflux disease without esophagitis
CPT/HCPCS: 58563; 36415; 84702; 85025; J1100; J1885; J2250; J2405; J2704; J3010